=== PATIENT | male | born 1940 | race Caucasian/White ===

== ENCOUNTER 2021-04-29 20:11 | Emergency (ER) | payer MEDICARE, OTHER ==
[2021-04-29 20:31] VITALS: BP 101/53; PULSE 86; TEMP 98.6; BMI 25.8
[2021-04-29 21:50] LABS: BASO % 0.9 % (0-2.0); EOS % 3.4 % (0-4.5); HEMATOCRIT 37.2 % (35.4-49); HEMOGLOBIN 12.3 GM/dL (11.7-16.9); LYMPH % 46.8 % (8-40); MCH 28.4 pg (25.7-33.7); MCHC 33.1 g/dl (32.0-35.9); MEAN CELL VOLUME 85.9 fl (80-96); MEAN PLT VOLUME 9.5 fl (7.5-11.1); NEUT % 39.9 % (42.8-82.8); PLATELET COUNT 231 10^3/uL (134-434); RBC 4.33 M/mm3 (4.00-5.60); RDW 13.5 % (11.9-15.9); WHITE BLOOD COUNT 6.9 K/mm3 (4.0-10.0)
[2021-04-29 23:08] LABS: BILIRUBIN,TOTAL 0.3 mg/dL (0.2-1); CALCIUM 8.6 mg/dL (8.5-10.1); CREATININE 1.2 mg/dL (0.55-1.3)
== END 2021-04-30 00:06 | disposition home or self-care (01) ==
LOC: FER 20:11
DX: K52.9 Noninfective gastroenteritis and colitis, unspecified (principal); R07.89 Other chest pain
CPT/HCPCS: 36415; 80053; 82550; 84484; 85025; 99284-25

== ENCOUNTER 2021-08-01 19:37 | Inpatient (IN) | payer OTHER, MEDICARE ==
[2021-08-01 20:27] LABS: HEMATOCRIT 38.8 % (35.4-49); HEMOGLOBIN 13.5 G/dL (11.7-16.9); MCH 29.7 pg (25.7-33.7); MCHC 34.9 g/dl (32.0-35.9); MEAN CELL VOLUME 85.1 fl (80-96); MEAN PLT VOLUME 9.2 fl (7.5-11.1); PLATELET COUNT 227.5 10^3/uL (134-434); RBC 4.56 10^6/uL (4.00-5.60); RDW 14.5 % (11.9-15.9); WHITE BLOOD COUNT 9.4 10^3/uL (4.0-10.8)
[2021-08-01 20:34] LABS: ALBUMIN 3.4 g/dl (3.4-5.0); BILIRUBIN,TOTAL 0.9 mg/dl (0.2-1); CREATININE 1.2 mg/dl (0.55-1.3); TOT PROT 6.3 g/dl (6.4-8.2)
[2021-08-01 20:36] LABS: PLATELET ESTIMATE ADEQUATE
[2021-08-01] MEDS ORDERED: cefTRIAXone SODIUM 1 GM VIAL ONE (21:55)
[2021-08-01] MEDS ORDERED: CEFTRIAXONE 1,000 MG in DEXTROSE 5%-WATER - 50 ML IVPB ONE (21:57)
[2021-08-01] MEDS ORDERED: ACETAMINOPHEN 325 MG TABLET (FP) PO PRN (23:38)
[2021-08-02 05:33] VITALS: BMI 24.3
[2021-08-02 08:11] LABS: CALCIUM 8.5 mg/dl (8.5-10); CREATININE 1.3 mg/dl (0.55-1.3)
[2021-08-02] MEDS ORDERED: cefTRIAXone SODIUM 1 GM VIAL ONE (08:20)
[2021-08-02] MEDS ORDERED: DEXTROSE 5%-WATER - 50 ML IVPB ONE (08:20)
[2021-08-02 08:57] LABS: HEMATOCRIT 37.1 % (35.4-49); HEMOGLOBIN 12.6 G/dL (11.7-16.9); MEAN CELL VOLUME 85.2 fl (80-96); MEAN PLT VOLUME 9.5 fl (7.5-11.1); PLATELET COUNT 175.9 10^3/uL (134-434); RBC 4.35 10^6/uL (4.00-5.60); RDW 14.9 % (11.9-15.9); WHITE BLOOD COUNT 8.5 10^3/uL (4.0-10.8)
[2021-08-02] MEDS: MEMANTINE HCL 10 MG TABLET (FP) PO SCH (09:02)
[2021-08-02] MEDS: ASPIRIN 81 MG CHEWABLE TABLETS PO SCH (09:02)
[2021-08-02] MEDS: metoPROLOL SUCCINATE 25 MG TAB.SR.24H (FP) PO SCH (09:02)
[2021-08-02] MEDS: CEFTRIAXONE 1 GM in DEXTROSE 5%-WATER - 50 ML IVPB SCH (09:02)
[2021-08-02] MEDS: ENOXAPARIN NA (PORCINE) 40 MG/0.4 ML DISP.SYRIN SQ SCH (15:10)
[2021-08-02] MEDS ORDERED: ATORVASTATIN CA 20 MG TABLET (FP) PO SCH (22:00)
[2021-08-02] MEDS ORDERED: DONEPEZIL HCL 10 MG TABLET (FP) PO SCH (22:00)
[2021-08-03 08:23] LABS: BILIRUBIN,TOTAL 0.6 mg/dl (0.2-1); CALCIUM 8.6 mg/dl (8.5-10); CREATININE 1.2 mg/dl (0.55-1.3); TOT PROT 5.7 g/dl (6.4-8.2)
[2021-08-03 08:37] LABS: HEMATOCRIT 36.4 % (35.4-49); HEMOGLOBIN 12.6 G/dL (11.7-16.9); MCH 29.4 pg (25.7-33.7); MCHC 34.5 g/dl (32.0-35.9); MEAN CELL VOLUME 85.3 fl (80-96); MEAN PLT VOLUME 9.6 fl (7.5-11.1); RBC 4.27 10^6/uL (4.00-5.60); RDW 14.4 % (11.9-15.9); WHITE BLOOD COUNT 8.9 10^3/uL (4.0-10.8)
[2021-08-03] MEDS ORDERED: cefTRIAXone SODIUM 1 GM VIAL ONE (09:45)
[2021-08-03] MEDS ORDERED: DEXTROSE 5%-WATER - 50 ML IVPB ONE (09:45)
[2021-08-03] MEDS: ENOXAPARIN NA (PORCINE) 40 MG/0.4 ML DISP.SYRIN SQ SCH (09:49)
[2021-08-03] MEDS: CEFTRIAXONE 1 GM in DEXTROSE 5%-WATER - 50 ML IVPB SCH (09:50)
[2021-08-03] MEDS: MEMANTINE HCL 10 MG TABLET (FP) PO SCH (09:50)
[2021-08-03] MEDS: metoPROLOL SUCCINATE 25 MG TAB.SR.24H (FP) PO SCH (09:50)
[2021-08-03] MEDS: ASPIRIN 81 MG CHEWABLE TABLETS PO SCH (09:50)
[2021-08-03 13:59] VITALS: BP 117/53; PULSE 78; TEMP 98.1
== END 2021-08-03 16:31 | DRG 690 ==
LOC: FER 19:37 → FM/S 23:56 → OBSVTOIN 08-02 15:30 → FM/S 08-02 19:05
PROVIDERS: ADMIT Internal Medicine; ATTEND Nurse Practitioner Acute Care
DX: N39.0 Urinary tract infection, site not specified (principal); B96.89 Other specified bacterial agents as the cause of diseases classified elsewhere; F03.90 Unspecified dementia, unspecified severity, without behavioral disturbance, psychotic disturbance, mood disturbance, and anxiety; E78.00 Pure hypercholesterolemia, unspecified; I10 Essential (primary) hypertension; I25.10 Atherosclerotic heart disease of native coronary artery without angina pectoris; Z95.5 Presence of coronary angioplasty implant and graft
CPT/HCPCS: 0241U-QW; 36415; 70450-TC; 71045-TC-FY; 80048; 80053; 81003; 81015; 82550; 83605; 83735; 84484; 85025; 85027; 87040; 87086; 87186; 93005; 97116-GP; 97162-GP; 99285-25; G0378

== ENCOUNTER 2021-11-10 16:14 | Inpatient (IN) | payer OTHER, MEDICARE ==
[2021-11-10 18:14] LABS: BASO % 0.5 % (0-2.0); EOS % 1.2 % (0-4.5); HEMATOCRIT 39.6 % (35.4-49); HEMOGLOBIN 12.8 GM/dL (11.7-16.9); LYMPH % 24.1 % (8-40); MCH 28.2 pg (25.7-33.7); MCHC 32.4 g/dl (32.0-35.9); MEAN CELL VOLUME 86.9 fl (80-96); MEAN PLT VOLUME 9.4 fl (7.5-11.1); MONO % 9.4 % (3.8-10.2); NEUT % 64.8 % (42.8-82.8); PLATELET COUNT 357 10^3/uL (134-434); RBC 4.56 M/mm3 (4.00-5.60); RDW 15.1 % (11.9-15.9); WHITE BLOOD COUNT 9.6 K/mm3 (4.0-10.0)
[2021-11-10] MEDS ORDERED: HALOPERIDOL LACTATE 5 MG/ML IM ONE ×2 (18:19→20:06)
[2021-11-10 18:30] LABS: CHLORIDE 109 mmol/L (98-107); SODIUM 145 mmol/L (136-145)
[2021-11-10 18:32] LABS: CALCIUM 9.2 mg/dL (8.5-10.1)
[2021-11-10 18:33] LABS: ALBUMIN 2.5 g/dl (3.4-5.0); ANION GAP 9 MMOL/L (8-16); BLOOD UREA NITROGEN 30.4 mg/dL (7-18); CO2 27 mmol/L (21-32)
[2021-11-10 18:36] LABS: CREATININE 1.2 mg/dL (0.55-1.3); SGOT/AST 60 U/L (15-37); SGPT/ALT 42 U/L (13-61)
[2021-11-10 18:37] LABS: BILIRUBIN,TOTAL 0.7 mg/dL (0.2-1)
[2021-11-10 18:38] LABS: TOT PROT 6.7 g/dl (6.4-8.2)
[2021-11-10 18:39] LABS: ALK PHOS 89 U/L (45-117)
[2021-11-10] MEDS ORDERED: HALOPERIDOL LACTATE 5 MG/ML ONE ×2 (18:44→20:07)
[2021-11-10 18:52] LABS: GLUCOSE,RANDOM 122 mg/dL (74-106)
[2021-11-10] MEDS ORDERED: MIDAZOLAM HCL 5 MG/1 ML Single Dose Vial IVPUSH ONE (20:56)
[2021-11-10] MEDS ORDERED: MIDAZOLAM HCL 5 MG/1 ML Single Dose Vial ONE (20:58)
[2021-11-10] MEDS ORDERED: ACETAMINOPHEN 1000 MG/100 ML BAG IVPB ONE (21:51)
[2021-11-10] MEDS ORDERED: ACETAMINOPHEN INJECTION 100 ML IVPB ONE (22:17)
[2021-11-11] MEDS: morphine CARPU-JECT 2 MG/1 ML DISP.SYRIN IVPUSH ONE ×2 (00:32→00:35)
[2021-11-11] MEDS ORDERED: morphine CARPU-JECT 2 MG/1 ML DISP.SYRIN IVPUSH ONE (00:36)
[2021-11-11 02:06] LABS: INR 1.16 (0.83-1.09); PROTHROMBIN TIME (PATIENT) 13.4 SEC (9.7-13.0)
[2021-11-11 02:08] LABS: ACTIVATED PTT 26.2 SECONDS (25.2-36.5)
[2021-11-11 03:17] VITALS: BMI 22.8
[2021-11-11] MEDS: ACETAMINOPHEN 1000 MG/100 ML BAG IVPB PRN (05:40)
[2021-11-11 07:44] LABS: BASO % 0.6 % (0-2.0); EOS % 2.1 % (0-4.5); HEMATOCRIT 36.3 % (35.4-49); HEMOGLOBIN 11.6 GM/dL (11.7-16.9); LYMPH % 31.4 % (8-40); MCH 27.9 pg (25.7-33.7); MEAN CELL VOLUME 87.2 fl (80-96); MEAN PLT VOLUME 9.7 fl (7.5-11.1); MONO % 12.4 % (3.8-10.2); NEUT % 53.5 % (42.8-82.8); PLATELET COUNT 271 10^3/uL (134-434); RBC 4.17 M/mm3 (4.00-5.60); RDW 14.9 % (11.9-15.9)
[2021-11-11 08:30] LABS: BILIRUBIN,TOTAL 0.6 mg/dL (0.2-1); TOT PROT 5.9 g/dl (6.4-8.2)
[2021-11-11 08:31] LABS: ALBUMIN 2.6 g/dl (3.4-5.0)
[2021-11-11 08:32] LABS: BLOOD UREA NITROGEN 25.6 mg/dL (7-18); CREATININE 1.1 mg/dL (0.55-1.3); MAGNESIUM 2.6 mg/dL (1.8-2.4)
[2021-11-11 08:35] LABS: CALCIUM 8.8 mg/dL (8.5-10.1)
[2021-11-12] MEDS: DONEPEZIL HCL 10 MG TABLET (FP) PO SCH (17:34)
[2021-11-12] MEDS: ACETAMINOPHEN 1000 MG/100 ML BAG IVPB PRN (17:56)
[2021-11-12] MEDS: ATORVASTATIN CA 20 MG TABLET (FP) PO SCH (21:41)
[2021-11-13] MEDS: ASPIRIN 81 MG CHEWABLE TABLETS PO SCH (10:17)
[2021-11-13] MEDS: DONEPEZIL HCL 10 MG TABLET (FP) PO SCH (10:17)
[2021-11-13] MEDS: metoPROLOL SUCCINATE 25 MG TAB.SR.24H (FP) PO SCH (10:17)
[2021-11-13] MEDS: MEMANTINE HCL 10 MG TABLET (FP) PO SCH (10:17)
[2021-11-13] MEDS: ACETAMINOPHEN 1000 MG/100 ML BAG IVPB PRN (21:43)
[2021-11-13] MEDS: ATORVASTATIN CA 20 MG TABLET (FP) PO SCH (21:43)
[2021-11-14] MEDS: DONEPEZIL HCL 10 MG TABLET (FP) PO SCH (09:58)
[2021-11-14] MEDS: ASPIRIN 81 MG CHEWABLE TABLETS PO SCH (09:58)
[2021-11-14] MEDS: metoPROLOL SUCCINATE 25 MG TAB.SR.24H (FP) PO SCH (09:59)
[2021-11-14] MEDS: MEMANTINE HCL 10 MG TABLET (FP) PO SCH (09:59)
[2021-11-14] MEDS ORDERED: BUPIVACAINE HCL/PF 0.5% (5MG/ML) 10 ML VIAL ONE (12:24)
[2021-11-14] MEDS ORDERED: DEXMEDETOMIDINE HCL 200 MCG/2 ML IVPB ONE (12:25)
[2021-11-14] MEDS ORDERED: ACETAMINOPHEN INJECTION 100 ML IVPB ONE (12:25)
[2021-11-14] MEDS ORDERED: ceFAZolin SODIUM 1 GM VIAL ONE (13:04)
[2021-11-14] MEDS ORDERED: ceFAZolin SODIUM 1 GM VIAL IVPB ONE ×2 (14:15→14:29)
[2021-11-14] MEDS ORDERED: LACTATED RINGERS SOLUTION 1,000 ML IV SCH ×2 (15:15→15:48)
[2021-11-14] MEDS ORDERED: SENNOSIDES/DOCUSATE COMBO (SENNA PLUS) TABLET (UD) PO SCH (22:00)
[2021-11-14] MEDS: SENNOSIDES/DOCUSATE COMBO (SENNA PLUS) TABLET (UD) PO SCH ×2 (22:11→22:25)
[2021-11-14] MEDS: ATORVASTATIN CA 20 MG TABLET (FP) PO SCH ×2 (22:11→22:25)
[2021-11-14] MEDS: CEFAZOLIN SODIUM 2 GM in DEXTROSE 5%-WATER 100 ML IVPB SCH (22:12)
[2021-11-14] MEDS ORDERED: CEFAZOLIN SODIUM 2 GM in DEXTROSE 5%-WATER 100 ML IVPB SCH (23:00)
[2021-11-15] MEDS: CEFAZOLIN SODIUM 2 GM in DEXTROSE 5%-WATER 100 ML IVPB SCH (06:09)
[2021-11-15] MEDS: LEVOTHYROXINE NA 25 MCG TABLET (FP) PO SCH (06:10)
[2021-11-15] MEDS: ACETAMINOPHEN 1000 MG/100 ML BAG IVPB PRN ×2 (06:47→13:01)
[2021-11-15] MEDS ORDERED: LEVOTHYROXINE NA 25 MCG TABLET (FP) PO SCH (07:00)
[2021-11-15 07:30] LABS: BASO % 0.4 % (0-2.0); EOS % 0.3 % (0-4.5); HEMOGLOBIN 12.5 GM/dL (11.7-16.9); LYMPH % 13.6 % (8-40); MCH 28.6 pg (25.7-33.7); MEAN CELL VOLUME 86.6 fl (80-96); MEAN PLT VOLUME 9.7 fl (7.5-11.1); MONO % 8.3 % (3.8-10.2); NEUT % 77.4 % (42.8-82.8); PLATELET COUNT 403 10^3/uL (134-434); RBC 4.39 M/mm3 (4.00-5.60); RDW 14.8 % (11.9-15.9); WHITE BLOOD COUNT 10.1 K/mm3 (4.0-10.0)
[2021-11-15 07:53] LABS: ALBUMIN 2.7 g/dl (3.4-5.0); BLOOD UREA NITROGEN 16.1 mg/dL (7-18)
[2021-11-15 07:56] LABS: CREATININE 0.9 mg/dL (0.55-1.3)
[2021-11-15 07:59] LABS: BILIRUBIN,TOTAL 0.8 mg/dL (0.2-1); TOT PROT 6.3 g/dl (6.4-8.2)
[2021-11-15] MEDS: SENNOSIDES/DOCUSATE COMBO (SENNA PLUS) TABLET (UD) PO SCH ×2 (09:39→22:20)
[2021-11-15] MEDS: PANTOPRAZOLE 40 MG TABLET PO SCH (09:39)
[2021-11-15] MEDS: ENOXAPARIN NA (PORCINE) 40 MG/0.4 ML DISP.SYRIN SQ SCH (09:39)
[2021-11-15] MEDS: MULTIVITAMINS (DAILY MVI) TABLET (FP) PO SCH (09:39)
[2021-11-15] MEDS: MEMANTINE HCL 10 MG TABLET (FP) PO SCH (09:40)
[2021-11-15] MEDS: DONEPEZIL HCL 10 MG TABLET (FP) PO SCH (09:40)
[2021-11-15] MEDS: metoPROLOL SUCCINATE 25 MG TAB.SR.24H (FP) PO SCH (09:40)
[2021-11-15] MEDS ORDERED: MULTIVITAMINS (DAILY MVI) TABLET (FP) PO SCH (10:00)
[2021-11-15] MEDS ORDERED: ENOXAPARIN NA (PORCINE) 40 MG/0.4 ML DISP.SYRIN SQ SCH (10:00)
[2021-11-15] MEDS ORDERED: PANTOPRAZOLE 40 MG TABLET PO SCH (10:00)
[2021-11-15] MEDS ORDERED: traMADol HCL 50 MG TABLET PO PRN (17:08)
[2021-11-15] MEDS: ATORVASTATIN CA 20 MG TABLET (FP) PO SCH (22:20)
[2021-11-16] MEDS: LEVOTHYROXINE NA 25 MCG TABLET (FP) PO SCH (06:32)
[2021-11-16 08:04] LABS: HEMATOCRIT 34.1 % (35.4-49); MCHC 32.2 g/dl (32.0-35.9); MEAN CELL VOLUME 86.8 fl (80-96); MEAN PLT VOLUME 9.8 fl (7.5-11.1); PLATELET COUNT 304 10^3/uL (134-434); RBC 3.93 M/mm3 (4.00-5.60); RDW 14.9 % (11.9-15.9); WHITE BLOOD COUNT 9.5 K/mm3 (4.0-10.0)
[2021-11-16 08:10] VITALS: RESP 18
[2021-11-16] MEDS: MEMANTINE HCL 10 MG TABLET (FP) PO SCH (09:45)
[2021-11-16] MEDS: SENNOSIDES/DOCUSATE COMBO (SENNA PLUS) TABLET (UD) PO SCH ×2 (09:46→21:49)
[2021-11-16] MEDS: DONEPEZIL HCL 10 MG TABLET (FP) PO SCH (09:46)
[2021-11-16] MEDS: ENOXAPARIN NA (PORCINE) 40 MG/0.4 ML DISP.SYRIN SQ SCH (09:46)
[2021-11-16] MEDS: PANTOPRAZOLE 40 MG TABLET PO SCH (09:46)
[2021-11-16] MEDS: MULTIVITAMINS (DAILY MVI) TABLET (FP) PO SCH (09:46)
[2021-11-16] MEDS: metoPROLOL SUCCINATE 25 MG TAB.SR.24H (FP) PO SCH (09:49)
[2021-11-16] MEDS: ATORVASTATIN CA 20 MG TABLET (FP) PO SCH (21:49)
[2021-11-17] MEDS: traMADol HCL 50 MG TABLET PO PRN ×2 (00:05→10:40)
[2021-11-17] MEDS: LEVOTHYROXINE NA 25 MCG TABLET (FP) PO SCH (06:29)
[2021-11-17] MEDS ORDERED: INSULIN (NOVOLOG) ASPART 100 UNITS/ML 10ML VIAL ONE (07:34)
[2021-11-17] MEDS: SENNOSIDES/DOCUSATE COMBO (SENNA PLUS) TABLET (UD) PO SCH ×2 (10:29→21:57)
[2021-11-17] MEDS: ENOXAPARIN NA (PORCINE) 40 MG/0.4 ML DISP.SYRIN SQ SCH (10:30)
[2021-11-17] MEDS: MEMANTINE HCL 10 MG TABLET (FP) PO SCH (10:30)
[2021-11-17] MEDS: MULTIVITAMINS (DAILY MVI) TABLET (FP) PO SCH (10:30)
[2021-11-17] MEDS: DONEPEZIL HCL 10 MG TABLET (FP) PO SCH (10:30)
[2021-11-17] MEDS: PANTOPRAZOLE 40 MG TABLET PO SCH (10:30)
[2021-11-17] MEDS: ATORVASTATIN CA 20 MG TABLET (FP) PO SCH (21:57)
[2021-11-18] MEDS: traMADol HCL 50 MG TABLET PO PRN ×2 (02:58→10:02)
[2021-11-18] MEDS: LEVOTHYROXINE NA 25 MCG TABLET (FP) PO SCH (06:12)
[2021-11-18] MEDS: ENOXAPARIN NA (PORCINE) 40 MG/0.4 ML DISP.SYRIN SQ SCH (10:01)
[2021-11-18] MEDS: DONEPEZIL HCL 10 MG TABLET (FP) PO SCH (10:02)
[2021-11-18] MEDS: MEMANTINE HCL 10 MG TABLET (FP) PO SCH (10:02)
[2021-11-18] MEDS: SENNOSIDES/DOCUSATE COMBO (SENNA PLUS) TABLET (UD) PO SCH (10:02)
[2021-11-18] MEDS: MULTIVITAMINS (DAILY MVI) TABLET (FP) PO SCH (10:02)
[2021-11-18] MEDS: PANTOPRAZOLE 40 MG TABLET PO SCH (10:02)
[2021-11-18 14:28] VITALS: BP 120/55; PULSE 96; TEMP 96
== END 2021-11-18 16:30 | DRG 522 ==
LOC: JER 16:14 → JERBED 23:28 → J4W 11-11 03:32 → J6S 11-16 14:32
PROVIDERS: ADMIT Internal Medicine; ATTEND Family Medicine
PROC: 0SRS0JZ Replacement of Left Hip Joint, Femoral Surface with Synthetic Substitute, Open Approach (ICD-10-PCS; principal; 2021-11-14 15:30)
DX: S72.002A Fracture of unspecified part of neck of left femur, initial encounter for closed fracture (principal); F03.918 Unspecified dementia, unspecified severity, with other behavioral disturbance; I10 Essential (primary) hypertension; E78.5 Hyperlipidemia, unspecified; I25.10 Atherosclerotic heart disease of native coronary artery without angina pectoris; Z95.5 Presence of coronary angioplasty implant and graft; W19.XXXA Unspecified fall, initial encounter; Y93.9 Activity, unspecified; Y92.89 Other specified places as the place of occurrence of the external cause; Y99.9 Unspecified external cause status
CPT/HCPCS: 36415; 70450-TC; 71045-TC-FY; 72170-TC-FY; 72192-TC; 73502-TC-LT-FY; 73502-TC-RT-FY; 73700-TC-RT; 80048; 80053; 80061; 83735; 84443; 84484; 85025; 85027; 85610; 85730; 86850; 86900; 86901; 88305-TC; 88311-TC; 93005; 93010; 93306-TC; 94760; 97116-GP; 97162-GP; 99285-25; C9803-CS; U0003; U0005

== ENCOUNTER 2022-01-17 17:57 | Inpatient (IN) | payer OTHER, MEDICARE ==
[2022-01-17 21:13] LABS: VENOUS BASE EXCESS 3.9 mmol/L (-2-2); VENOUS O2 SATURATION 44.9 % (70-80); VENOUS PCO2 45.4 mmHg (38-52); VENOUS PH 7.423 (7.310-7.410)
[2022-01-17 21:43] LABS: BASO % 0.9 % (0-2.0); EOS % 0.6 % (0-4.5); HEMATOCRIT 36.4 % (35.4-49); HEMOGLOBIN 11.6 GM/dL (11.7-16.9); LYMPH % 42.5 % (8-40); MCH 26.2 pg (25.7-33.7); MCHC 31.8 g/dl (32.0-35.9); MEAN CELL VOLUME 82.2 fl (80-96); MEAN PLT VOLUME 8.2 fl (7.5-11.1); MONO % 11.7 % (3.8-10.2); NEUT % 44.3 % (42.8-82.8); PLATELET COUNT 399 10^3/uL (134-434); RBC 4.42 M/mm3 (4.00-5.60); RDW 15.6 % (11.9-15.9); WHITE BLOOD COUNT 8.4 K/mm3 (4.0-10.0)
[2022-01-17 21:45] LABS: EPI CELLS 22 /uL (0-25.1); HYALINE CASTS 8 /uL (0-3.1); PH,URINE 5.5 (5.0-8.0); URINE APPEARANCE CLOUDY; URINE BACTERIA 24 /uL (0-1359); URINE BILIRUBIN 1+ (NEGATIVE); URINE COLOR DK YELLOW; URINE GLUCOSE (UA) NEGATIVE (NEGATIVE); URINE KETONE 1+ (NEGATIVE); URINE LEUK ESTERASE TRACE (NEGATIVE); URINE NITRITE NEGATIVE (NEGATIVE); URINE PROTEIN 1+ (NEGATIVE); URINE RBC 165 /uL (0-23.9); URINE WBC 29 /uL (0-25.8)
[2022-01-17 21:45] LABS: BLOOD UREA NITROGEN 13.9 mg/dL (7-18); CALCIUM 8.8 mg/dL (8.5-10.1); MAGNESIUM 2.1 mg/dL (1.8-2.4)
[2022-01-17 21:46] LABS: ALBUMIN 2.4 g/dl (3.4-5.0)
[2022-01-17 21:48] LABS: PHOSPHOROUS 3.2 mg/dL (2.5-4.9)
[2022-01-17 21:49] LABS: CREATININE 0.9 mg/dL (0.55-1.3)
[2022-01-17 21:50] LABS: BILIRUBIN,TOTAL 0.5 mg/dL (0.2-1); TOT PROT 6.6 g/dl (6.4-8.2)
[2022-01-17] MEDS ORDERED: PIPERACILLIN/TAZOB 4.5 GM 4.5 GM in DEXTROSE 5%-WATER 100 ML IVPB ONE (22:10)
[2022-01-17] MEDS ORDERED: PIPERACILLIN/TAZOB 4.5 GM 4.5 GM/100 ML BAG IVPB ONE (22:20)
[2022-01-18 09:43] LABS: BASO % 1.1 % (0-2.0); EOS % 1.1 % (0-4.5); HEMATOCRIT 31.3 % (35.4-49); HEMOGLOBIN 9.8 GM/dL (11.7-16.9); LYMPH % 35.4 % (8-40); MCH 25.8 pg (25.7-33.7); MCHC 31.5 g/dl (32.0-35.9); MEAN CELL VOLUME 81.8 fl (80-96); MEAN PLT VOLUME 8.3 fl (7.5-11.1); MONO % 15.7 % (3.8-10.2); NEUT % 46.7 % (42.8-82.8); PLATELET COUNT 345 10^3/uL (134-434); RBC 3.82 M/mm3 (4.00-5.60); RDW 15.5 % (11.9-15.9); WHITE BLOOD COUNT 6.4 K/mm3 (4.0-10.0)
[2022-01-18 10:14] LABS: ALBUMIN 2.1 g/dl (3.4-5.0); CALCIUM 8.5 mg/dL (8.5-10.1)
[2022-01-18 10:17] LABS: BLOOD UREA NITROGEN 14.8 mg/dL (7-18); CREATININE 0.8 mg/dL (0.55-1.3)
[2022-01-18 10:19] LABS: BILIRUBIN,TOTAL 0.5 mg/dL (0.2-1); TOT PROT 5.7 g/dl (6.4-8.2)
[2022-01-18] MEDS ORDERED: PIPERACILLIN/TAZOB 4.5 GM 4.5 GM in DEXTROSE 5%-WATER 100 ML IVPB SCH (11:00)
[2022-01-18] MEDS: ASPIRIN COATED 81 MG TABLET.EC PO SCH (12:16)
[2022-01-18] MEDS: MEMANTINE HCL 10 MG TABLET (FP) PO SCH ×2 (12:16→22:00)
[2022-01-18] MEDS: PANTOPRAZOLE 40 MG TABLET PO SCH (12:16)
[2022-01-18] MEDS: traMADol HCL 50 MG TABLET PO PRN ×2 (12:17→22:46)
[2022-01-18] MEDS: DONEPEZIL HCL 10 MG TABLET (FP) PO SCH (17:37)
[2022-01-18 20:25] VITALS: BMI 22.7
[2022-01-18] MEDS: ATORVASTATIN CA 40 MG TABLET (FP) PO SCH (22:45)
[2022-01-19] MEDS: LEVOTHYROXINE NA 25 MCG TABLET (FP) PO SCH (06:31)
[2022-01-19] MEDS ORDERED: PIPERACILLIN/TAZOB 4.5 GM 4.5 GM in DEXTROSE 5%-WATER 100 ML IVPB SCH (09:00)
[2022-01-19] MEDS: MEMANTINE HCL 10 MG TABLET (FP) PO SCH ×2 (10:36→23:22)
[2022-01-19] MEDS: ASPIRIN COATED 81 MG TABLET.EC PO SCH (10:36)
[2022-01-19] MEDS: ENOXAPARIN NA (PORCINE) 40 MG/0.4 ML DISP.SYRIN SQ SCH (10:36)
[2022-01-19] MEDS: PANTOPRAZOLE 40 MG TABLET PO SCH (10:36)
[2022-01-19] MEDS: DONEPEZIL HCL 10 MG TABLET (FP) PO SCH (17:28)
[2022-01-19] MEDS: ATORVASTATIN CA 40 MG TABLET (FP) PO SCH (23:22)
[2022-01-20] MEDS: LEVOTHYROXINE NA 25 MCG TABLET (FP) PO SCH (06:34)
[2022-01-20 08:25] LABS: HEMATOCRIT 29.2 % (35.4-49); HEMOGLOBIN 9.5 GM/dL (11.7-16.9); MCH 26.6 pg (25.7-33.7); MCHC 32.5 g/dl (32.0-35.9); MEAN CELL VOLUME 81.8 fl (80-96); MEAN PLT VOLUME 7.9 fl (7.5-11.1); PLATELET COUNT 310 10^3/uL (134-434); RBC 3.57 M/mm3 (4.00-5.60); RDW 15.7 % (11.9-15.9); WHITE BLOOD COUNT 5.8 K/mm3 (4.0-10.0)
[2022-01-20 08:51] LABS: BLOOD UREA NITROGEN 15.8 mg/dL (7-18); CALCIUM 8.4 mg/dL (8.5-10.1)
[2022-01-20 08:55] LABS: CREATININE 0.7 mg/dL (0.55-1.3)
[2022-01-20 08:57] LABS: BILIRUBIN,TOTAL 1.1 mg/dL (0.2-1); TOT PROT 5.4 g/dl (6.4-8.2)
[2022-01-20] MEDS: ENOXAPARIN NA (PORCINE) 40 MG/0.4 ML DISP.SYRIN SQ SCH (10:41)
[2022-01-20] MEDS: ASPIRIN COATED 81 MG TABLET.EC PO SCH (10:41)
[2022-01-20] MEDS: PANTOPRAZOLE 40 MG TABLET PO SCH (10:41)
[2022-01-20] MEDS: MEMANTINE HCL 10 MG TABLET (FP) PO SCH ×2 (11:06→22:15)
[2022-01-20] MEDS: traMADol HCL 50 MG TABLET PO PRN (15:31)
[2022-01-20] MEDS: DONEPEZIL HCL 10 MG TABLET (FP) PO SCH (18:05)
[2022-01-20] MEDS: ATORVASTATIN CA 40 MG TABLET (FP) PO SCH (21:50)
[2022-01-20] MEDS: ACETAMINOPHEN 325 MG TABLET (FP) PO PRN (21:51)
[2022-01-21] MEDS: LEVOTHYROXINE NA 25 MCG TABLET (FP) PO SCH (06:12)
[2022-01-21] MEDS: ASPIRIN COATED 81 MG TABLET.EC PO SCH (09:49)
[2022-01-21] MEDS: PANTOPRAZOLE 40 MG TABLET PO SCH (09:49)
[2022-01-21] MEDS: MEMANTINE HCL 10 MG TABLET (FP) PO SCH ×3 (09:55→23:12)
[2022-01-21] MEDS: ENOXAPARIN NA (PORCINE) 40 MG/0.4 ML DISP.SYRIN SQ SCH (09:55)
[2022-01-21] MEDS: PANTOPRAZOLE SOD 40 MG SUSPENSION PACKET PO SCH (17:15)
[2022-01-21] MEDS: DONEPEZIL HCL 10 MG TABLET (FP) PO SCH (17:16)
[2022-01-21] MEDS: ATORVASTATIN CA 40 MG TABLET (FP) PO SCH ×2 (23:07→23:13)
[2022-01-22] MEDS: LEVOTHYROXINE NA 25 MCG TABLET (FP) PO SCH (06:56)
[2022-01-22] MEDS: ACETAMINOPHEN 325 MG TABLET (FP) PO PRN (09:06)
[2022-01-22] MEDS: ASPIRIN COATED 81 MG TABLET.EC PO SCH (10:16)
[2022-01-22] MEDS: MEMANTINE HCL 10 MG TABLET (FP) PO SCH ×2 (10:48→21:55)
[2022-01-22] MEDS: PANTOPRAZOLE SOD 40 MG SUSPENSION PACKET PO SCH (10:48)
[2022-01-22] MEDS: ENOXAPARIN NA (PORCINE) 40 MG/0.4 ML DISP.SYRIN SQ SCH (10:49)
[2022-01-22] MEDS: DONEPEZIL HCL 10 MG TABLET (FP) PO SCH (17:53)
[2022-01-22] MEDS: ATORVASTATIN CA 40 MG TABLET (FP) PO SCH (21:55)
[2022-01-23] MEDS: LEVOTHYROXINE NA 25 MCG TABLET (FP) PO SCH (06:19)
[2022-01-23] MEDS: ACETAMINOPHEN 325 MG TABLET (FP) PO PRN (10:33)
[2022-01-23] MEDS: PANTOPRAZOLE SOD 40 MG SUSPENSION PACKET PO SCH (10:33)
[2022-01-23] MEDS: ENOXAPARIN NA (PORCINE) 40 MG/0.4 ML DISP.SYRIN SQ SCH (10:33)
[2022-01-23] MEDS: MEMANTINE HCL 10 MG TABLET (FP) PO SCH ×2 (10:33→22:58)
[2022-01-23] MEDS: ASPIRIN 81 MG CHEWABLE TABLETS PO SCH (10:33)
[2022-01-23] MEDS ORDERED: KETOROLAC TROMETHAMINE 15 MG/ML VIAL IVPUSH ONE (17:05)
[2022-01-23] MEDS: DONEPEZIL HCL 10 MG TABLET (FP) PO SCH (18:45)
[2022-01-23] MEDS: ATORVASTATIN CA 40 MG TABLET (FP) PO SCH (22:58)
[2022-01-24] MEDS: KETOROLAC TROMETHAMINE 15 MG/ML VIAL IVPUSH PRN ×2 (02:37→21:53)
[2022-01-24] MEDS ORDERED: KETOROLAC TROMETHAMINE 15 MG/ML VIAL IM ONE (03:25)
[2022-01-24] MEDS: LEVOTHYROXINE NA 25 MCG TABLET (FP) PO SCH (06:42)
[2022-01-24] MEDS: ASPIRIN 81 MG CHEWABLE TABLETS PO SCH (11:26)
[2022-01-24] MEDS: ENOXAPARIN NA (PORCINE) 40 MG/0.4 ML DISP.SYRIN SQ SCH (11:27)
[2022-01-24] MEDS: MEMANTINE HCL 10 MG TABLET (FP) PO SCH ×2 (11:27→21:53)
[2022-01-24] MEDS: PANTOPRAZOLE SOD 40 MG SUSPENSION PACKET PO SCH (11:27)
[2022-01-24] MEDS: ACETAMINOPHEN 325 MG TABLET (FP) PO PRN (11:28)
[2022-01-24] MEDS ORDERED: REMDESIVIR 200 MG in SODIUM CHLORIDE 250 ML IVPB ONE (12:00)
[2022-01-24 13:04] LABS: BASO % 0.9 % (0-2.0); EOS % 0.6 % (0-4.5); HEMATOCRIT 30.7 % (35.4-49); HEMOGLOBIN 9.9 GM/dL (11.7-16.9); LYMPH % 24.2 % (8-40); MCH 26.4 pg (25.7-33.7); MCHC 32.1 g/dl (32.0-35.9); MEAN CELL VOLUME 82.1 fl (80-96); MEAN PLT VOLUME 8.6 fl (7.5-11.1); NEUT % 67.3 % (42.8-82.8); PLATELET COUNT 295 10^3/uL (134-434); RBC 3.74 M/mm3 (4.00-5.60); RDW 16.5 % (11.9-15.9); WHITE BLOOD COUNT 7.2 K/mm3 (4.0-10.0)
[2022-01-24 13:35] LABS: CALCIUM 8.6 mg/dL (8.5-10.1)
[2022-01-24 13:36] LABS: ALBUMIN 1.9 g/dl (3.4-5.0); BLOOD UREA NITROGEN 29.9 mg/dL (7-18); MAGNESIUM 2.2 mg/dL (1.8-2.4)
[2022-01-24 13:39] LABS: CREATININE 1.1 mg/dL (0.55-1.3); PHOSPHOROUS 2.2 mg/dL (2.5-4.9)
[2022-01-24 13:40] LABS: BILIRUBIN,TOTAL 0.5 mg/dL (0.2-1); TOT PROT 5.5 g/dl (6.4-8.2)
[2022-01-24] MEDS: DONEPEZIL HCL 10 MG TABLET (FP) PO SCH (17:37)
[2022-01-24] MEDS: ATORVASTATIN CA 40 MG TABLET (FP) PO SCH (21:52)
[2022-01-25] MEDS ORDERED: HALOPERIDOL LACTATE 5 MG/ML IM ONE (00:30)
[2022-01-25] MEDS: LEVOTHYROXINE NA 25 MCG TABLET (FP) PO SCH (06:24)
[2022-01-25 09:09] LABS: BASO % 1.1 % (0-2.0); EOS % 1.9 % (0-4.5); HEMATOCRIT 31.3 % (35.4-49); HEMOGLOBIN 9.9 GM/dL (11.7-16.9); LYMPH % 42.1 % (8-40); MCH 26.1 pg (25.7-33.7); MCHC 31.5 g/dl (32.0-35.9); MEAN CELL VOLUME 82.8 fl (80-96); MONO % 10.1 % (3.8-10.2); NEUT % 44.8 % (42.8-82.8); PLATELET COUNT 284 10^3/uL (134-434); RBC 3.78 M/mm3 (4.00-5.60); RDW 15.9 % (11.9-15.9); WHITE BLOOD COUNT 6.5 K/mm3 (4.0-10.0)
[2022-01-25 09:14] LABS: CALCIUM 8.6 mg/dL (8.5-10.1)
[2022-01-25 09:15] LABS: ALBUMIN 1.9 g/dl (3.4-5.0); BLOOD UREA NITROGEN 39.1 mg/dL (7-18); MAGNESIUM 2.3 mg/dL (1.8-2.4)
[2022-01-25 09:20] LABS: BILIRUBIN,TOTAL 0.3 mg/dL (0.2-1); TOT PROT 5.5 g/dl (6.4-8.2)
[2022-01-25] MEDS: ENOXAPARIN NA (PORCINE) 40 MG/0.4 ML DISP.SYRIN SQ SCH (10:45)
[2022-01-25] MEDS: ASPIRIN 81 MG CHEWABLE TABLETS PO SCH (10:46)
[2022-01-25] MEDS: PANTOPRAZOLE SOD 40 MG SUSPENSION PACKET PO SCH (10:46)
[2022-01-25] MEDS: MEMANTINE HCL 10 MG TABLET (FP) PO SCH ×2 (10:46→23:00)
[2022-01-25] MEDS: KETOROLAC TROMETHAMINE 15 MG/ML VIAL IVPUSH PRN (10:59)
[2022-01-25] MEDS: REMDESIVIR 100 MG in SODIUM CHLORIDE 250 ML IVPB SCH (12:50)
[2022-01-25] MEDS: ACETAMINOPHEN 325 MG TABLET (FP) PO PRN (13:45)
[2022-01-25] MEDS: DONEPEZIL HCL 10 MG TABLET (FP) PO SCH (17:57)
[2022-01-25] MEDS: COLLAGENASE CLOSTRIDIUM HIST. 30 GRAMS TUBE TP SCH (18:22)
[2022-01-25] MEDS: ATORVASTATIN CA 40 MG TABLET (FP) PO SCH (23:00)
[2022-01-26] MEDS: LEVOTHYROXINE NA 25 MCG TABLET (FP) PO SCH (06:44)
[2022-01-26] MEDS: REMDESIVIR 100 MG in SODIUM CHLORIDE 250 ML IVPB SCH (11:14)
[2022-01-26] MEDS: ENOXAPARIN NA (PORCINE) 40 MG/0.4 ML DISP.SYRIN SQ SCH (11:14)
[2022-01-26] MEDS: COLLAGENASE CLOSTRIDIUM HIST. 30 GRAMS TUBE TP SCH (11:15)
[2022-01-26] MEDS: PANTOPRAZOLE SOD 40 MG SUSPENSION PACKET PO SCH (11:15)
[2022-01-26] MEDS: ASPIRIN 81 MG CHEWABLE TABLETS PO SCH (11:15)
[2022-01-26] MEDS: MEMANTINE HCL 10 MG TABLET (FP) PO SCH (11:16)
[2022-01-26] MEDS: DONEPEZIL HCL 10 MG TABLET (FP) PO SCH (18:18)
[2022-01-27 03:32] VITALS: BP 134/82; PULSE 112; RESP 17; TEMP 98.9
== END 2022-01-26 20:00 | DRG 884 ==
LOC: JER 17:57 → JERBED 22:40 → J7W 01-18 07:32 → J6S 01-20 02:33 → J7W 01-20 02:34
PROVIDERS: ADMIT Family Medicine; ATTEND Nurse Practitioner Family
PROC: XW033E5 Introduction of Remdesivir Anti-infective into Peripheral Vein, Percutaneous Approach, New Technology Group 5 (ICD-10-PCS; principal; 2022-01-25)
DX: F03.90 Unspecified dementia, unspecified severity, without behavioral disturbance, psychotic disturbance, mood disturbance, and anxiety (principal); R53.2 Functional quadriplegia; U07.1 COVID-19; E87.0 Hyperosmolality and hypernatremia; I25.10 Atherosclerotic heart disease of native coronary artery without angina pectoris; I10 Essential (primary) hypertension; E78.5 Hyperlipidemia, unspecified; R53.1 Weakness; B96.20 Unspecified Escherichia coli [E. coli] as the cause of diseases classified elsewhere; R26.81 Unsteadiness on feet; L89.221 Pressure ulcer of left hip, stage 1; L89.609 Pressure ulcer of unspecified heel, unspecified stage
CPT/HCPCS: 0241U-QW; 36415; 70450-TC; 71045-TC-FY; 73502-TC-LT-FY; 73502-TC-RT-FY; 80053; 81003; 82803; 83605; 83735; 84100; 84443; 84484; 85025; 85027; 86140; 87040; 87086; 87186; 93005; 93010; 97161-GP; 99285-25; C9399; C9803-CS; U0003; U0005

== ENCOUNTER 2022-03-10 10:47 | Inpatient (IN) | payer OTHER, MEDICARE ==
[2022-03-10] MEDS ORDERED: SODIUM CHLORIDE 1,000 ML IV STA (11:36)
[2022-03-10 11:59] LABS: VENOUS BASE EXCESS 0.4 mmol/L (-2-2); VENOUS O2 SATURATION 19.8 % (70-80); VENOUS PCO2 53.6 mmHg (38-52); VENOUS PH 7.331 (7.310-7.410)
[2022-03-10 12:02] LABS: BASO % 0.7 % (0-2.0); EOS % 0.5 % (0-4.5); EPI CELLS >36 /uL (0-25.1); HEMATOCRIT 30.1 % (35.4-49); HEMOGLOBIN 9.4 GM/dL (11.7-16.9); HYALINE CASTS 66 /uL (0-3.1); LYMPH % 28.6 % (8-40); MCH 25.8 pg (25.7-33.7); MCHC 31.3 g/dl (32.0-35.9); MEAN CELL VOLUME 82.4 fl (80-96); MEAN PLT VOLUME 9.2 fl (7.5-11.1); MONO % 5.3 % (3.8-10.2); NEUT % 64.9 % (42.8-82.8); PLATELET COUNT 586 10^3/uL (134-434); RBC 3.65 M/mm3 (4.00-5.60); RDW 17.6 % (11.9-15.9); URINE APPEARANCE TURBID; URINE BILIRUBIN NEGATIVE (NEGATIVE); URINE COLOR DK YELLOW; URINE GLUCOSE (UA) NEGATIVE (NEGATIVE); URINE KETONE NEGATIVE (NEGATIVE); URINE LEUK ESTERASE 1+ (NEGATIVE); URINE NITRITE NEGATIVE (NEGATIVE); URINE PROTEIN 1+ (NEGATIVE); URINE UROBILINOGEN 0.2 mg/dL (0.2-1.0); URINE WBC 126 /uL (0-25.8); WHITE BLOOD COUNT 10.4 K/mm3 (4.0-10.0)
[2022-03-10 12:05] LABS: INR 1.34 (0.83-1.09); PROTHROMBIN TIME (PATIENT) 15.5 SEC (9.7-13.0)
[2022-03-10 12:07] LABS: ACTIVATED PTT 29.3 SECONDS (25.2-36.5)
[2022-03-10 12:30] LABS: BLOOD UREA NITROGEN 44.4 mg/dL (7-18)
[2022-03-10 12:31] LABS: CALCIUM 8.6 mg/dL (8.5-10.1)
[2022-03-10 12:33] LABS: ALBUMIN 1.6 g/dl (3.4-5.0)
[2022-03-10 12:34] LABS: BILIRUBIN,TOTAL 0.3 mg/dL (0.2-1); CREATININE 0.9 mg/dL (0.55-1.3)
[2022-03-10 12:36] LABS: URINE BACTERIA 48 /uL (0-1359); URINE CRYSTALS URIC ACID /hpf; URINE RBC 88 /uL (0-23.9); YEAST NEGATIVE (NEGATIVE)
[2022-03-10 12:37] LABS: TOT PROT 5.8 g/dl (6.4-8.2)
[2022-03-10 13:11] LABS: URIC ACID 5.9 mg/dL (2.6-7.2)
[2022-03-10] MEDS ORDERED: DEXTROSE 5%-LACTATED RINGERS 1,000 ML IV ONE (13:15)
[2022-03-10] MEDS ORDERED: PIPERACILLIN/TAZOB 3.375 GM 3.375 GM in DEXTROSE 5%-WATER - 50 ML IVPB ONE (14:49)
[2022-03-10] MEDS ORDERED: VANCOMYCIN 1 GM in D5W (PRE-DOCKED) 1,000 MG/250 ML IVPB ONE (14:50)
[2022-03-10] MEDS ORDERED: PIPERACILLIN/TAZOB 3.375 GM 3.375 GM/50 ML BAG IVPB ONE (15:35)
[2022-03-10] MEDS ORDERED: VANCOMYCIN/WATER FOR INJ (PEG) 1,000 MG/200 ML BAG IVPB ONE (15:35)
[2022-03-10] MEDS: DONEPEZIL HCL 10 MG TABLET (FP) PO SCH (17:46)
[2022-03-10] MEDS: D5-1/2NS+10 MEQ KCL - 10 MEQ/1,000 ML INFUS.BAG IV SCH (17:53)
[2022-03-10] MEDS: ATORVASTATIN CA 20 MG TABLET (FP) PO SCH (23:09)
[2022-03-11] MEDS: LEVOTHYROXINE NA 25 MCG TABLET (FP) PO SCH (06:11)
[2022-03-11] MEDS: D5-1/2NS+10 MEQ KCL - 10 MEQ/1,000 ML INFUS.BAG IV SCH ×2 (06:18→21:39)
[2022-03-11] MEDS: ENOXAPARIN NA (PORCINE) 40 MG/0.4 ML DISP.SYRIN SQ SCH (09:13)
[2022-03-11] MEDS: PANTOPRAZOLE 40 MG TABLET PO SCH (09:50)
[2022-03-11] MEDS: ASPIRIN 81 MG CHEWABLE TABLETS PO SCH (09:50)
[2022-03-11] MEDS ORDERED: CEFTRIAXONE 1 GM in DEXTROSE 5%-WATER - 50 ML IVPB SCH (10:00)
[2022-03-11] MEDS: metoPROLOL SUCCINATE 25 MG TAB.SR.24H (FP) PO SCH (10:04)
[2022-03-11 10:10] LABS: BASO % 1.1 % (0-2.0); EOS % 2.1 % (0-4.5); HEMOGLOBIN 7.9 GM/dL (11.7-16.9); LYMPH % 32.6 % (8-40); MCH 25.1 pg (25.7-33.7); MCHC 30.3 g/dl (32.0-35.9); MEAN CELL VOLUME 82.8 fl (80-96); MEAN PLT VOLUME 8.6 fl (7.5-11.1); MONO % 7.9 % (3.8-10.2); NEUT % 56.3 % (42.8-82.8); PLATELET COUNT 448 10^3/uL (134-434); RBC 3.15 M/mm3 (4.00-5.60); RDW 17.8 % (11.9-15.9); WHITE BLOOD COUNT 6.7 K/mm3 (4.0-10.0)
[2022-03-11 10:48] LABS: ALBUMIN 1.4 g/dl (3.4-5.0); CALCIUM 7.8 mg/dL (8.5-10.1)
[2022-03-11 10:49] LABS: BLOOD UREA NITROGEN 28.7 mg/dL (7-18); MAGNESIUM 2.3 mg/dL (1.8-2.4)
[2022-03-11 10:52] LABS: CREATININE 0.8 mg/dL (0.55-1.3)
[2022-03-11 10:53] LABS: BILIRUBIN,TOTAL 0.3 mg/dL (0.2-1); TOT PROT 4.8 g/dl (6.4-8.2)
[2022-03-11] MEDS: VANCOMYCIN/WATER FOR INJ (PEG) 1,000 MG/200 ML BAG IVPB SCH (12:55)
[2022-03-11 16:16] VITALS: BMI 16.2
[2022-03-11] MEDS: PIPERACILLIN/TAZOB 3.375 GM 3.375 GM in DEXTROSE 5%-WATER - 50 ML IVPB SCH (18:09)
[2022-03-11] MEDS: DONEPEZIL HCL 10 MG TABLET (FP) PO SCH (18:09)
[2022-03-11] MEDS: ASCORBIC ACID 250 MG TABLET (FP) PO SCH (21:39)
[2022-03-11] MEDS: ATORVASTATIN CA 20 MG TABLET (FP) PO SCH (21:39)
[2022-03-12] MEDS: PIPERACILLIN/TAZOB 3.375 GM 3.375 GM in DEXTROSE 5%-WATER - 50 ML IVPB SCH ×3 (01:15→18:04)
[2022-03-12] MEDS: LEVOTHYROXINE NA 25 MCG TABLET (FP) PO SCH (06:10)
[2022-03-12] MEDS: ASCORBIC ACID 250 MG TABLET (FP) PO SCH ×2 (10:27→21:23)
[2022-03-12] MEDS: PANTOPRAZOLE 40 MG TABLET PO SCH (10:27)
[2022-03-12] MEDS: ENOXAPARIN NA (PORCINE) 40 MG/0.4 ML DISP.SYRIN SQ SCH (10:27)
[2022-03-12] MEDS: ASPIRIN 81 MG CHEWABLE TABLETS PO SCH (10:27)
[2022-03-12] MEDS: MULTIVIT-MINERALS ORAL LIQUID PO SCH (10:27)
[2022-03-12] MEDS: D5-1/2NS+10 MEQ KCL - 10 MEQ/1,000 ML INFUS.BAG IV SCH ×2 (10:35→20:55)
[2022-03-12] MEDS: metoPROLOL SUCCINATE 25 MG TAB.SR.24H (FP) PO SCH (10:55)
[2022-03-12] MEDS: VANCOMYCIN/WATER FOR INJ (PEG) 1,000 MG/200 ML BAG IVPB SCH (11:58)
[2022-03-12] MEDS: DONEPEZIL HCL 10 MG TABLET (FP) PO SCH (18:04)
[2022-03-12] MEDS: ATORVASTATIN CA 20 MG TABLET (FP) PO SCH (21:23)
[2022-03-13] MEDS: PIPERACILLIN/TAZOB 3.375 GM 3.375 GM in DEXTROSE 5%-WATER - 50 ML IVPB SCH ×3 (01:22→17:16)
[2022-03-13] MEDS: ACETAMINOPHEN 325 MG TABLET (FP) PO PRN ×2 (03:01→14:32)
[2022-03-13] MEDS: D5-1/2NS+10 MEQ KCL - 10 MEQ/1,000 ML INFUS.BAG IV SCH ×2 (05:35→12:35)
[2022-03-13] MEDS: LEVOTHYROXINE NA 25 MCG TABLET (FP) PO SCH (06:22)
[2022-03-13] MEDS: COLLAGENASE CLOSTRIDIUM HIST. 30 GRAMS TUBE TP SCH (10:35)
[2022-03-13] MEDS: PANTOPRAZOLE 40 MG TABLET PO SCH (10:35)
[2022-03-13] MEDS: MULTIVIT-MINERALS ORAL LIQUID PO SCH (10:35)
[2022-03-13] MEDS: ASCORBIC ACID 250 MG TABLET (FP) PO SCH ×2 (10:35→21:17)
[2022-03-13] MEDS: metoPROLOL SUCCINATE 25 MG TAB.SR.24H (FP) PO SCH (10:35)
[2022-03-13] MEDS: ASPIRIN 81 MG CHEWABLE TABLETS PO SCH (10:35)
[2022-03-13] MEDS: SODIUM HYPOCHLORITE 0.25%- 473 ML BULK BOTTLE TP SCH (10:36)
[2022-03-13] MEDS: ENOXAPARIN NA (PORCINE) 40 MG/0.4 ML DISP.SYRIN SQ SCH (10:36)
[2022-03-13 10:43] LABS: HEMATOCRIT 23.4 % (35.4-49); HEMOGLOBIN 7.3 GM/dL (11.7-16.9); LYMPH % 34.8 % (8-40); MCH 26.1 pg (25.7-33.7); MCHC 31.2 g/dl (32.0-35.9); MEAN CELL VOLUME 83.6 fl (80-96); MEAN PLT VOLUME 8.5 fl (7.5-11.1); MONO % 6.2 % (3.8-10.2); PLATELET COUNT 358 10^3/uL (134-434); RBC 2.79 M/mm3 (4.00-5.60); RDW 16.9 % (11.9-15.9); WHITE BLOOD COUNT 6.1 K/mm3 (4.0-10.0)
[2022-03-13 11:15] LABS: CHLORIDE 109 mmol/L (98-107); SODIUM 135 mmol/L (136-145)
[2022-03-13 11:24] LABS: ANION GAP 5 MMOL/L (8-16); BLOOD UREA NITROGEN 10.8 mg/dL (7-18); CO2 20 mmol/L (21-32)
[2022-03-13 11:26] LABS: SGPT/ALT 12 U/L (13-61)
[2022-03-13 11:27] LABS: SGOT/AST 13 U/L (15-37)
[2022-03-13 11:28] LABS: BILIRUBIN,TOTAL 0.2 mg/dL (0.2-1); TOT PROT 3.5 g/dl (6.4-8.2)
[2022-03-13 11:29] LABS: ALK PHOS 58 U/L (45-117)
[2022-03-13 11:45] LABS: GLUCOSE,RANDOM 1002 mg/dL (74-106)
[2022-03-13] MEDS: VANCOMYCIN/WATER FOR INJ (PEG) 1,000 MG/200 ML BAG IVPB SCH (12:36)
[2022-03-13] MEDS: DONEPEZIL HCL 10 MG TABLET (FP) PO SCH (17:17)
[2022-03-13 17:53] LABS: EOS % 1.2 % (0-4.5); LYMPH % 30.4 % (8-40); MCH 25.5 pg (25.7-33.7); MEAN CELL VOLUME 82.1 fl (80-96); MEAN PLT VOLUME 8.9 fl (7.5-11.1); MONO % 6.1 % (3.8-10.2); NEUT % 61.3 % (42.8-82.8); PLATELET COUNT 401 10^3/uL (134-434); RBC 3.16 M/mm3 (4.00-5.60); RDW 17.2 % (11.9-15.9); RETICULOCYTES 0.65 % (0.5-1.5); WHITE BLOOD COUNT 7.6 K/mm3 (4.0-10.0)
[2022-03-13 18:19] LABS: BLOOD UREA NITROGEN 14.3 mg/dL (7-18)
[2022-03-13 18:22] LABS: CREATININE 0.8 mg/dL (0.55-1.3)
[2022-03-13 18:23] LABS: BILIRUBIN,TOTAL 0.3 mg/dL (0.2-1); TOT PROT 4.9 g/dl (6.4-8.2)
[2022-03-13 18:40] LABS: ALBUMIN 1.4 g/dl (3.4-5.0); CALCIUM 7.9 mg/dL (8.5-10.1)
[2022-03-13] MEDS: ERTAPENEM SODIUM 1 GM in SODIUM CHLORIDE 50 ML IVPB SCH (18:42)
[2022-03-13] MEDS: ATORVASTATIN CA 20 MG TABLET (FP) PO SCH (21:16)
[2022-03-13] MEDS: [UNRECOGNIZED DRUG - OTHER] IVPB SCH (21:19)
[2022-03-13] MEDS: AMINO ACIDS IVPB SCH (21:19)
[2022-03-13] MEDS: THIAMINE HCL IVPB SCH (21:19)
[2022-03-14] MEDS ORDERED: ACETAMINOPHEN 1000 MG/100 ML BAG IVPB ONE (02:08)
[2022-03-14] MEDS: LEVOTHYROXINE NA 25 MCG TABLET (FP) PO SCH ×2 (05:59→07:27)
[2022-03-14] MEDS: metoPROLOL SUCCINATE 25 MG TAB.SR.24H (FP) PO SCH (10:06)
[2022-03-14] MEDS: ENOXAPARIN NA (PORCINE) 40 MG/0.4 ML DISP.SYRIN SQ SCH (10:06)
[2022-03-14] MEDS: ASPIRIN 81 MG CHEWABLE TABLETS PO SCH (10:06)
[2022-03-14] MEDS: ASCORBIC ACID 250 MG TABLET (FP) PO SCH ×2 (10:07→22:18)
[2022-03-14] MEDS: PANTOPRAZOLE 40 MG TABLET PO SCH (10:07)
[2022-03-14] MEDS: SODIUM HYPOCHLORITE 0.25%- 473 ML BULK BOTTLE TP SCH (10:07)
[2022-03-14] MEDS: COLLAGENASE CLOSTRIDIUM HIST. 30 GRAMS TUBE TP SCH (10:07)
[2022-03-14] MEDS: ERTAPENEM SODIUM 1 GM in SODIUM CHLORIDE 50 ML IVPB SCH (10:07)
[2022-03-14] MEDS: MULTIVIT-MINERALS ORAL LIQUID PO SCH (10:08)
[2022-03-14 11:05] LABS: EOS % 1.7 % (0-4.5); HEMATOCRIT 23.9 % (35.4-49); HEMOGLOBIN 7.6 GM/dL (11.7-16.9); LYMPH % 39.4 % (8-40); MCHC 32.1 g/dl (32.0-35.9); MEAN CELL VOLUME 81.1 fl (80-96); MEAN PLT VOLUME 8.5 fl (7.5-11.1); MONO % 7.2 % (3.8-10.2); NEUT % 50.7 % (42.8-82.8); PLATELET COUNT 336 10^3/uL (134-434); RBC 2.94 M/mm3 (4.00-5.60); RDW 16.7 % (11.9-15.9); WHITE BLOOD COUNT 6.7 K/mm3 (4.0-10.0)
[2022-03-14 11:20] LABS: ALBUMIN 1.4 g/dl (3.4-5.0); BLOOD UREA NITROGEN 15.6 mg/dL (7-18); CALCIUM 7.7 mg/dL (8.5-10.1)
[2022-03-14 11:23] LABS: CREATININE 0.7 mg/dL (0.55-1.3)
[2022-03-14 11:25] LABS: BILIRUBIN,TOTAL 0.2 mg/dL (0.2-1); TOT PROT 4.7 g/dl (6.4-8.2)
[2022-03-14] MEDS: VANCOMYCIN/WATER FOR INJ (PEG) 1,000 MG/200 ML BAG IVPB SCH (13:03)
[2022-03-14] MEDS ORDERED: IRON SUCROSE INJECTION 200 MG in SODIUM CHLORIDE 90 ML IVPB ONE (16:45)
[2022-03-14] MEDS: DONEPEZIL HCL 10 MG TABLET (FP) PO SCH (17:56)
[2022-03-14] MEDS: [UNRECOGNIZED DRUG - OTHER] IVPB SCH (18:34)
[2022-03-14] MEDS: AMINO ACIDS IVPB SCH (18:34)
[2022-03-14] MEDS: THIAMINE HCL IVPB SCH (18:34)
[2022-03-14] MEDS: ATORVASTATIN CA 20 MG TABLET (FP) PO SCH (22:18)
[2022-03-15] MEDS: [UNRECOGNIZED DRUG - OTHER] IVPB SCH ×2 (05:51→17:48)
[2022-03-15] MEDS: THIAMINE HCL IVPB SCH ×2 (05:51→17:48)
[2022-03-15] MEDS: AMINO ACIDS IVPB SCH ×2 (05:51→17:48)
[2022-03-15] MEDS: LEVOTHYROXINE NA 25 MCG TABLET (FP) PO SCH (06:03)
[2022-03-15] MEDS: ASCORBIC ACID 250 MG TABLET (FP) PO SCH ×2 (09:39→22:22)
[2022-03-15] MEDS: metoPROLOL SUCCINATE 25 MG TAB.SR.24H (FP) PO SCH (09:39)
[2022-03-15] MEDS: ERTAPENEM SODIUM 1 GM in SODIUM CHLORIDE 50 ML IVPB SCH (09:39)
[2022-03-15] MEDS: MULTIVIT-MINERALS ORAL LIQUID PO SCH (09:39)
[2022-03-15] MEDS: ENOXAPARIN NA (PORCINE) 40 MG/0.4 ML DISP.SYRIN SQ SCH (09:39)
[2022-03-15] MEDS: PANTOPRAZOLE 40 MG TABLET PO SCH (09:39)
[2022-03-15] MEDS: ASPIRIN 81 MG CHEWABLE TABLETS PO SCH (09:39)
[2022-03-15] MEDS: COLLAGENASE CLOSTRIDIUM HIST. 30 GRAMS TUBE TP SCH (09:40)
[2022-03-15] MEDS: SODIUM HYPOCHLORITE 0.25%- 473 ML BULK BOTTLE TP SCH (09:40)
[2022-03-15] MEDS: VANCOMYCIN/WATER FOR INJ (PEG) 1,000 MG/200 ML BAG IVPB SCH (12:32)
[2022-03-15] MEDS ORDERED: POTASSIUM CHLORIDE ORAL LIQUID 20 MEQ/15 ML PO ONE (12:56)
[2022-03-15] MEDS: DONEPEZIL HCL 10 MG TABLET (FP) PO SCH ×2 (18:11→18:43)
[2022-03-15] MEDS: ATORVASTATIN CA 20 MG TABLET (FP) PO SCH (22:22)
[2022-03-16] MEDS: AMINO ACIDS IVPB SCH ×2 (00:49→22:00)
[2022-03-16] MEDS: THIAMINE HCL IVPB SCH ×2 (00:49→22:00)
[2022-03-16] MEDS: [UNRECOGNIZED DRUG - OTHER] IVPB SCH ×2 (00:49→22:00)
[2022-03-16] MEDS: LEVOTHYROXINE NA 25 MCG TABLET (FP) PO SCH (06:12)
[2022-03-16] MEDS: SODIUM HYPOCHLORITE 0.25%- 473 ML BULK BOTTLE TP SCH (10:30)
[2022-03-16] MEDS: COLLAGENASE CLOSTRIDIUM HIST. 30 GRAMS TUBE TP SCH (10:30)
[2022-03-16] MEDS: ASCORBIC ACID 250 MG TABLET (FP) PO SCH ×2 (11:04→22:32)
[2022-03-16] MEDS: metoPROLOL SUCCINATE 25 MG TAB.SR.24H (FP) PO SCH (11:04)
[2022-03-16] MEDS: ERTAPENEM SODIUM 1 GM in SODIUM CHLORIDE 50 ML IVPB SCH (11:05)
[2022-03-16] MEDS: ASPIRIN 81 MG CHEWABLE TABLETS PO SCH (11:05)
[2022-03-16] MEDS: PANTOPRAZOLE 40 MG TABLET PO SCH (11:05)
[2022-03-16] MEDS: ENOXAPARIN NA (PORCINE) 40 MG/0.4 ML DISP.SYRIN SQ SCH (11:05)
[2022-03-16] MEDS: MULTIVIT-MINERALS ORAL LIQUID PO SCH (11:05)
[2022-03-16] MEDS: VANCOMYCIN/WATER FOR INJ (PEG) 1,000 MG/200 ML BAG IVPB SCH (11:44)
[2022-03-16] MEDS: DONEPEZIL HCL 10 MG TABLET (FP) PO SCH (21:00)
[2022-03-16] MEDS: ATORVASTATIN CA 20 MG TABLET (FP) PO SCH (22:32)
[2022-03-17] MEDS: LEVOTHYROXINE NA 25 MCG TABLET (FP) PO SCH (06:19)
[2022-03-17] MEDS: SODIUM HYPOCHLORITE 0.25%- 473 ML BULK BOTTLE TP SCH (10:54)
[2022-03-17] MEDS: MULTIVIT-MINERALS ORAL LIQUID PO SCH (10:54)
[2022-03-17] MEDS: ASCORBIC ACID 250 MG TABLET (FP) PO SCH ×2 (10:55→23:04)
[2022-03-17] MEDS: metoPROLOL SUCCINATE 25 MG TAB.SR.24H (FP) PO SCH (10:55)
[2022-03-17] MEDS: ENOXAPARIN NA (PORCINE) 40 MG/0.4 ML DISP.SYRIN SQ SCH (10:55)
[2022-03-17] MEDS: COLLAGENASE CLOSTRIDIUM HIST. 30 GRAMS TUBE TP SCH (10:55)
[2022-03-17] MEDS: PANTOPRAZOLE 40 MG TABLET PO SCH (10:55)
[2022-03-17] MEDS: ASPIRIN 81 MG CHEWABLE TABLETS PO SCH (10:56)
[2022-03-17] MEDS: ERTAPENEM SODIUM 1 GM in SODIUM CHLORIDE 50 ML IVPB SCH (12:11)
[2022-03-17 14:04] LABS: ALBUMIN 1.4 g/dl (3.4-5.0); BLOOD UREA NITROGEN 12.7 mg/dL (7-18); MAGNESIUM 1.9 mg/dL (1.8-2.4)
[2022-03-17 14:07] LABS: CREATININE 0.4 mg/dL (0.55-1.3); PHOSPHOROUS 1.9 mg/dL (2.5-4.9)
[2022-03-17 14:08] LABS: BILIRUBIN,TOTAL 0.2 mg/dL (0.2-1); TOT PROT 4.7 g/dl (6.4-8.2)
[2022-03-17] MEDS: VANCOMYCIN/WATER FOR INJ (PEG) 1,000 MG/200 ML BAG IVPB SCH (14:11)
[2022-03-17] MEDS ORDERED: POTASSIUM PHOSPHATE 30 MM in SODIUM CHLORIDE 500 ML IVPB ONE (17:30)
[2022-03-17] MEDS: DONEPEZIL HCL 10 MG TABLET (FP) PO SCH (17:49)
[2022-03-17] MEDS: [UNRECOGNIZED DRUG - OTHER] IVPB SCH (23:04)
[2022-03-17] MEDS: POTASSIUM CHLORIDE IVPB SCH (23:04)
[2022-03-17] MEDS: ATORVASTATIN CA 20 MG TABLET (FP) PO SCH (23:04)
[2022-03-17] MEDS: THIAMINE HCL IVPB SCH (23:04)
[2022-03-17] MEDS: AMINO ACIDS IVPB SCH (23:04)
[2022-03-18] MEDS: POTASSIUM CHLORIDE IVPB SCH (04:13)
[2022-03-18] MEDS: THIAMINE HCL IVPB SCH (04:13)
[2022-03-18] MEDS: AMINO ACIDS IVPB SCH (04:13)
[2022-03-18] MEDS: [UNRECOGNIZED DRUG - OTHER] IVPB SCH (04:13)
[2022-03-18] MEDS: LEVOTHYROXINE NA 25 MCG TABLET (FP) PO SCH (07:26)
[2022-03-18] MEDS: PANTOPRAZOLE 40 MG TABLET PO SCH (10:34)
[2022-03-18] MEDS: ASCORBIC ACID 250 MG TABLET (FP) PO SCH ×2 (10:34→21:39)
[2022-03-18] MEDS: ASPIRIN 81 MG CHEWABLE TABLETS PO SCH (10:34)
[2022-03-18] MEDS: metoPROLOL SUCCINATE 25 MG TAB.SR.24H (FP) PO SCH (10:34)
[2022-03-18] MEDS: SODIUM HYPOCHLORITE 0.25%- 473 ML BULK BOTTLE TP SCH (10:35)
[2022-03-18] MEDS: ERTAPENEM SODIUM 1 GM in SODIUM CHLORIDE 50 ML IVPB SCH (10:35)
[2022-03-18] MEDS: MULTIVIT-MINERALS ORAL LIQUID PO SCH (10:35)
[2022-03-18] MEDS: COLLAGENASE CLOSTRIDIUM HIST. 30 GRAMS TUBE TP SCH (10:35)
[2022-03-18] MEDS: DONEPEZIL HCL 10 MG TABLET (FP) PO SCH (18:18)
[2022-03-18] MEDS: ATORVASTATIN CA 20 MG TABLET (FP) PO SCH (21:39)
[2022-03-19] MEDS: AMINO ACIDS IVPB SCH ×2 (04:17→17:13)
[2022-03-19] MEDS: [UNRECOGNIZED DRUG - OTHER] IVPB SCH ×2 (04:17→17:13)
[2022-03-19] MEDS: POTASSIUM CHLORIDE IVPB SCH ×2 (04:17→17:13)
[2022-03-19] MEDS: THIAMINE HCL IVPB SCH ×2 (04:17→17:13)
[2022-03-19] MEDS: LEVOTHYROXINE NA 25 MCG TABLET (FP) PO SCH (06:20)
[2022-03-19] MEDS: metoPROLOL SUCCINATE 25 MG TAB.SR.24H (FP) PO SCH ×2 (10:14→10:37)
[2022-03-19] MEDS: ASPIRIN 81 MG CHEWABLE TABLETS PO SCH ×2 (10:15→10:36)
[2022-03-19] MEDS: PANTOPRAZOLE 40 MG TABLET PO SCH ×2 (10:15→10:37)
[2022-03-19] MEDS: ASCORBIC ACID 250 MG TABLET (FP) PO SCH ×3 (10:15→22:27)
[2022-03-19] MEDS: MULTIVIT-MINERALS ORAL LIQUID PO SCH ×2 (10:18→10:35)
[2022-03-19] MEDS: ERTAPENEM SODIUM 1 GM in SODIUM CHLORIDE 50 ML IVPB SCH (10:19)
[2022-03-19 10:30] LABS: CALCIUM 7.9 mg/dL (8.5-10.1)
[2022-03-19 10:31] LABS: ALBUMIN 1.3 g/dl (3.4-5.0); BLOOD UREA NITROGEN 14.9 mg/dL (7-18); MAGNESIUM 1.7 mg/dL (1.8-2.4)
[2022-03-19 10:33] LABS: CREATININE 0.4 mg/dL (0.55-1.3); PHOSPHOROUS 2.3 mg/dL (2.5-4.9)
[2022-03-19 10:35] LABS: BILIRUBIN,TOTAL 0.3 mg/dL (0.2-1); TOT PROT 4.4 g/dl (6.4-8.2)
[2022-03-19] MEDS ORDERED: POTASSIUM PHOSPHATE 30 MM in DEXTROSE 5%-WATER - 500 ML IVPB ONE (12:48)
[2022-03-19] MEDS ORDERED: MAGNESIUM SULF 50% (8.12 MEQ/2 ML-1 GM VIAL) IVPB ONE (12:48)
[2022-03-19] MEDS: COLLAGENASE CLOSTRIDIUM HIST. 30 GRAMS TUBE TP SCH (15:28)
[2022-03-19] MEDS: SODIUM HYPOCHLORITE 0.25%- 473 ML BULK BOTTLE TP SCH (15:28)
[2022-03-19] MEDS: DONEPEZIL HCL 10 MG TABLET (FP) PO SCH (17:14)
[2022-03-19] MEDS: ATORVASTATIN CA 20 MG TABLET (FP) PO SCH (22:27)
[2022-03-20] MEDS: LEVOTHYROXINE NA 25 MCG TABLET (FP) PO SCH (06:51)
[2022-03-20] MEDS: ASCORBIC ACID 250 MG TABLET (FP) PO SCH ×2 (10:47→21:31)
[2022-03-20] MEDS: ASPIRIN 81 MG CHEWABLE TABLETS PO SCH (10:47)
[2022-03-20] MEDS: ZINC SULFATE 220 MG CAPSULE (FP) PO SCH (10:47)
[2022-03-20] MEDS: PANTOPRAZOLE 40 MG TABLET PO SCH (10:47)
[2022-03-20] MEDS: metoPROLOL SUCCINATE 25 MG TAB.SR.24H (FP) PO SCH (10:47)
[2022-03-20] MEDS: ERTAPENEM SODIUM 1 GM in SODIUM CHLORIDE 50 ML IVPB SCH (10:48)
[2022-03-20] MEDS: SODIUM HYPOCHLORITE 0.25%- 473 ML BULK BOTTLE TP SCH (10:48)
[2022-03-20] MEDS: MULTIVIT-MINERALS ORAL LIQUID PO SCH (10:48)
[2022-03-20] MEDS: COLLAGENASE CLOSTRIDIUM HIST. 30 GRAMS TUBE TP SCH (10:48)
[2022-03-20 11:18] LABS: BASO % 1.1 % (0-2.0); EOS % 2.9 % (0-4.5); HEMATOCRIT 22.1 % (35.4-49); HEMOGLOBIN 7.2 GM/dL (11.7-16.9); LYMPH % 40.4 % (8-40); MCH 25.9 pg (25.7-33.7); MCHC 32.6 g/dl (32.0-35.9); MEAN CELL VOLUME 79.5 fl (80-96); MEAN PLT VOLUME 8.3 fl (7.5-11.1); MONO % 10.5 % (3.8-10.2); NEUT % 45.1 % (42.8-82.8); PLATELET COUNT 341 10^3/uL (134-434); RBC 2.78 M/mm3 (4.00-5.60); WHITE BLOOD COUNT 5.6 K/mm3 (4.0-10.0)
[2022-03-20 11:54] LABS: CALCIUM 7.8 mg/dL (8.5-10.1)
[2022-03-20 11:55] LABS: ALBUMIN 1.4 g/dl (3.4-5.0); BLOOD UREA NITROGEN 14.1 mg/dL (7-18); MAGNESIUM 2.2 mg/dL (1.8-2.4)
[2022-03-20 11:57] LABS: CREATININE 0.4 mg/dL (0.55-1.3)
[2022-03-20 11:58] LABS: PHOSPHOROUS 2.6 mg/dL (2.5-4.9)
[2022-03-20 11:59] LABS: BILIRUBIN,TOTAL 0.2 mg/dL (0.2-1); TOT PROT 4.5 g/dl (6.4-8.2)
[2022-03-20] MEDS ORDERED: IRON SUCROSE INJECTION 200 MG in SODIUM CHLORIDE 90 ML IVPB ONE (18:28)
[2022-03-20] MEDS: THIAMINE HCL IVPB SCH (18:40)
[2022-03-20] MEDS: POTASSIUM CHLORIDE IVPB SCH (18:40)
[2022-03-20] MEDS: AMINO ACIDS IVPB SCH (18:40)
[2022-03-20] MEDS: [UNRECOGNIZED DRUG - OTHER] IVPB SCH (18:40)
[2022-03-20] MEDS: DONEPEZIL HCL 10 MG TABLET (FP) PO SCH (18:41)
[2022-03-20] MEDS: ATORVASTATIN CA 20 MG TABLET (FP) PO SCH (21:31)
[2022-03-21] MEDS: LEVOTHYROXINE NA 25 MCG TABLET (FP) PO SCH (06:25)
[2022-03-21] MEDS: ZINC SULFATE 220 MG CAPSULE (FP) PO SCH (10:48)
[2022-03-21] MEDS: SODIUM HYPOCHLORITE 0.25%- 473 ML BULK BOTTLE TP SCH (10:48)
[2022-03-21] MEDS: ERTAPENEM SODIUM 1 GM in SODIUM CHLORIDE 50 ML IVPB SCH (10:48)
[2022-03-21] MEDS: ASCORBIC ACID 250 MG TABLET (FP) PO SCH ×2 (10:48→21:53)
[2022-03-21] MEDS: PANTOPRAZOLE 40 MG TABLET PO SCH (10:48)
[2022-03-21] MEDS: metoPROLOL SUCCINATE 25 MG TAB.SR.24H (FP) PO SCH (10:48)
[2022-03-21] MEDS: ASPIRIN 81 MG CHEWABLE TABLETS PO SCH (10:48)
[2022-03-21] MEDS: MULTIVIT-MINERALS ORAL LIQUID PO SCH (10:48)
[2022-03-21] MEDS: COLLAGENASE CLOSTRIDIUM HIST. 30 GRAMS TUBE TP SCH (10:49)
[2022-03-21] MEDS: DONEPEZIL HCL 10 MG TABLET (FP) PO SCH (17:20)
[2022-03-21] MEDS: POTASSIUM CHLORIDE IVPB SCH (17:20)
[2022-03-21] MEDS: [UNRECOGNIZED DRUG - OTHER] IVPB SCH (17:20)
[2022-03-21] MEDS: AMINO ACIDS IVPB SCH (17:20)
[2022-03-21] MEDS: THIAMINE HCL IVPB SCH (17:20)
[2022-03-21] MEDS: ATORVASTATIN CA 20 MG TABLET (FP) PO SCH (21:53)
[2022-03-22] MEDS: THIAMINE HCL IVPB SCH ×2 (06:39→16:48)
[2022-03-22] MEDS: LEVOTHYROXINE NA 25 MCG TABLET (FP) PO SCH (06:39)
[2022-03-22] MEDS: POTASSIUM CHLORIDE IVPB SCH ×2 (06:39→16:48)
[2022-03-22] MEDS: AMINO ACIDS IVPB SCH ×2 (06:39→16:48)
[2022-03-22] MEDS: [UNRECOGNIZED DRUG - OTHER] IVPB SCH ×2 (06:39→16:48)
[2022-03-22] MEDS: ASCORBIC ACID 250 MG TABLET (FP) PO SCH ×2 (10:04→22:22)
[2022-03-22] MEDS: ASPIRIN 81 MG CHEWABLE TABLETS PO SCH (10:04)
[2022-03-22] MEDS: PANTOPRAZOLE 40 MG TABLET PO SCH (10:04)
[2022-03-22] MEDS: metoPROLOL SUCCINATE 25 MG TAB.SR.24H (FP) PO SCH (10:04)
[2022-03-22] MEDS: ZINC SULFATE 220 MG CAPSULE (FP) PO SCH (10:04)
[2022-03-22] MEDS: MULTIVIT-MINERALS ORAL LIQUID PO SCH (10:05)
[2022-03-22] MEDS: SODIUM HYPOCHLORITE 0.25%- 473 ML BULK BOTTLE TP SCH (10:05)
[2022-03-22] MEDS: ERTAPENEM SODIUM 1 GM in SODIUM CHLORIDE 50 ML IVPB SCH (10:05)
[2022-03-22] MEDS: COLLAGENASE CLOSTRIDIUM HIST. 30 GRAMS TUBE TP SCH (10:06)
[2022-03-22 10:33] LABS: HEMATOCRIT 22.7 % (35.4-49); HEMOGLOBIN 7.4 GM/dL (11.7-16.9); MCH 25.9 pg (25.7-33.7); MCHC 32.4 g/dl (32.0-35.9); MEAN CELL VOLUME 79.7 fl (80-96); MEAN PLT VOLUME 8.5 fl (7.5-11.1); PLATELET COUNT 373 10^3/uL (134-434); RBC 2.85 M/mm3 (4.00-5.60); RDW 17.6 % (11.9-15.9); WHITE BLOOD COUNT 5.7 K/mm3 (4.0-10.0)
[2022-03-22 11:06] LABS: ALBUMIN 1.5 g/dl (3.4-5.0); BLOOD UREA NITROGEN 13.9 mg/dL (7-18); CALCIUM 7.9 mg/dL (8.5-10.1)
[2022-03-22 11:09] LABS: CREATININE 0.4 mg/dL (0.55-1.3); PHOSPHOROUS 2.7 mg/dL (2.5-4.9)
[2022-03-22 11:10] LABS: BILIRUBIN,TOTAL 0.2 mg/dL (0.2-1); TOT PROT 4.9 g/dl (6.4-8.2)
[2022-03-22] MEDS: DONEPEZIL HCL 10 MG TABLET (FP) PO SCH (17:44)
[2022-03-22] MEDS: ATORVASTATIN CA 20 MG TABLET (FP) PO SCH (22:21)
[2022-03-23] MEDS: THIAMINE HCL IVPB SCH (06:12)
[2022-03-23] MEDS: POTASSIUM CHLORIDE IVPB SCH (06:12)
[2022-03-23] MEDS: LEVOTHYROXINE NA 25 MCG TABLET (FP) PO SCH (06:12)
[2022-03-23] MEDS: [UNRECOGNIZED DRUG - OTHER] IVPB SCH (06:12)
[2022-03-23] MEDS: AMINO ACIDS IVPB SCH (06:12)
[2022-03-23 08:58] VITALS: RESP 18
[2022-03-23] MEDS: ASCORBIC ACID 250 MG TABLET (FP) PO SCH (10:21)
[2022-03-23] MEDS: PANTOPRAZOLE 40 MG TABLET PO SCH (10:21)
[2022-03-23] MEDS: ZINC SULFATE 220 MG CAPSULE (FP) PO SCH (10:21)
[2022-03-23] MEDS: ASPIRIN 81 MG CHEWABLE TABLETS PO SCH (10:21)
[2022-03-23] MEDS: metoPROLOL SUCCINATE 25 MG TAB.SR.24H (FP) PO SCH (10:22)
[2022-03-23] MEDS: MULTIVIT-MINERALS ORAL LIQUID PO SCH (10:22)
[2022-03-23] MEDS: ERTAPENEM SODIUM 1 GM in SODIUM CHLORIDE 50 ML IVPB SCH (10:22)
[2022-03-23] MEDS: SODIUM HYPOCHLORITE 0.25%- 473 ML BULK BOTTLE TP SCH (10:23)
[2022-03-23] MEDS: COLLAGENASE CLOSTRIDIUM HIST. 30 GRAMS TUBE TP SCH (10:24)
[2022-03-23 14:28] VITALS: BP 102/59; PULSE 115; TEMP 97.9
== END 2022-03-23 16:00 | DRG 689 ==
LOC: JER 10:47 → JERBED 14:57 → J5S 21:33 → J6S 03-16 18:34
PROVIDERS: ADMIT Family Medicine; ATTEND Family Medicine
DX: N39.0 Urinary tract infection, site not specified (principal); E43 Unspecified severe protein-calorie malnutrition; G92.8 Other toxic encephalopathy; L89.894 Pressure ulcer of other site, stage 4; E87.0 Hyperosmolality and hypernatremia; Z68.1 Body mass index [BMI] 19.9 or less, adult; R64 Cachexia; F02.80 Dementia in other diseases classified elsewhere, unspecified severity, without behavioral disturbance, psychotic disturbance, mood disturbance, and anxiety; I10 Essential (primary) hypertension; E78.5 Hyperlipidemia, unspecified; I25.10 Atherosclerotic heart disease of native coronary artery without angina pectoris; E03.9 Hypothyroidism, unspecified; F03.90 Unspecified dementia, unspecified severity, without behavioral disturbance, psychotic disturbance, mood disturbance, and anxiety; K21.9 Gastro-esophageal reflux disease without esophagitis; E86.0 Dehydration; Z95.5 Presence of coronary angioplasty implant and graft
CPT/HCPCS: 0241U-QW; 36415; 70450-TC; 71045-TC-FY; 80053; 81003; 82607; 82728; 82746; 82803; 82962; 83540; 83550; 83605; 83735; 84100; 84443; 84466; 84484; 84550; 85025; 85027; 85045; 85610; 85651; 85730; 86140; 86780; 86850; 86900; 86901; 87040; 87070; 87086; 87186; 87205; 93005; 93010; 99285-25; C9803-CS; G0480; J1756; U0003; U0005

== ENCOUNTER 2022-04-05 17:11 | Inpatient (IN) | payer OTHER, MEDICARE ==
[2022-04-05] MEDS ORDERED: ACETAMINOPHEN 1000 MG/100 ML BAG IVPB ONE (18:26)
[2022-04-05] MEDS ORDERED: LACTATED RINGERS SOLUTION 1000 ML INFUS.BAG IV ONE (18:27)
[2022-04-05 19:44] LABS: BASO % 0.8 % (0-2.0); EOS % 1.8 % (0-4.5); HEMATOCRIT 25.8 % (35.4-49); HEMOGLOBIN 8.5 GM/dL (11.7-16.9); LYMPH % 34.5 % (8-40); MCH 26.9 pg (25.7-33.7); MCHC 32.8 g/dl (32.0-35.9); MEAN PLT VOLUME 8.3 fl (7.5-11.1); MONO % 8.7 % (3.8-10.2); NEUT % 54.2 % (42.8-82.8); PLATELET COUNT 398 10^3/uL (134-434); RBC 3.15 M/mm3 (4.00-5.60); RDW 18.9 % (11.9-15.9); WHITE BLOOD COUNT 8.4 K/mm3 (4.0-10.0)
[2022-04-05] MEDS ORDERED: ACETAMINOPHEN INJECTION 100 ML IVPB ONE (19:45)
[2022-04-05 19:50] LABS: INR 1.32 (0.83-1.09); PROTHROMBIN TIME (PATIENT) 15.3 SEC (9.7-13.0)
[2022-04-05 20:07] LABS: ALBUMIN 1.7 g/dl (3.4-5.0); BLOOD UREA NITROGEN 15.5 mg/dL (7-18); CALCIUM 8.2 mg/dL (8.5-10.1); MAGNESIUM 1.9 mg/dL (1.8-2.4)
[2022-04-05 20:10] LABS: CREATININE 0.5 mg/dL (0.55-1.3); PHOSPHOROUS 2.3 mg/dL (2.5-4.9)
[2022-04-05 20:12] LABS: BILIRUBIN,TOTAL 0.3 mg/dL (0.2-1); TOT PROT 5.1 g/dl (6.4-8.2)
[2022-04-05 22:14] LABS: EPI CELLS 23 /uL (0-25.1); HYALINE CASTS 29 /uL (0-3.1); URINE APPEARANCE TURBID; URINE BACTERIA 2 /uL (0-1359); URINE BILIRUBIN NEGATIVE (NEGATIVE); URINE COLOR DK YELLOW; URINE GLUCOSE (UA) NEGATIVE (NEGATIVE); URINE KETONE TRACE (NEGATIVE); URINE LEUK ESTERASE NEGATIVE (NEGATIVE); URINE NITRITE NEGATIVE (NEGATIVE); URINE PROTEIN 1+ (NEGATIVE); URINE RBC 35 /uL (0-23.9); URINE UROBILINOGEN 0.2 mg/dL (0.2-1.0)
[2022-04-05] MEDS ORDERED: DEXTROSE 5%-NORMAL SALINE 1,000 ML IV SCH (22:30)
[2022-04-06] MEDS ORDERED: ACETAMINOPHEN 325 MG TABLET (FP) PO PRN (06:03)
[2022-04-06] MEDS: LEVOTHYROXINE NA 25 MCG TABLET (FP) PO SCH (07:10)
[2022-04-06 08:20] LABS: BASO % 0.9 % (0-2.0); EOS % 2.5 % (0-4.5); LYMPH % 31.1 % (8-40); MCH 26.6 pg (25.7-33.7); MEAN CELL VOLUME 83.3 fl (80-96); MEAN PLT VOLUME 8.8 fl (7.5-11.1); NEUT % 57.5 % (42.8-82.8); PLATELET COUNT 341 10^3/uL (134-434); RDW 19.4 % (11.9-15.9); WHITE BLOOD COUNT 7.4 K/mm3 (4.0-10.0)
[2022-04-06 08:37] LABS: BLOOD UREA NITROGEN 12.9 mg/dL (7-18); CALCIUM 8.1 mg/dL (8.5-10.1)
[2022-04-06 08:41] LABS: CREATININE 0.4 mg/dL (0.55-1.3)
[2022-04-06] MEDS: traMADol HCL 50 MG TABLET PO PRN ×2 (09:07→22:18)
[2022-04-06 09:18] LABS: URINE CRYSTALS PRESENT /hpf; URINE WBC 59 /uL (0-25.8)
[2022-04-06] MEDS: MEMANTINE HCL 10 MG TABLET (FP) PO SCH (10:49)
[2022-04-06] MEDS: ASCORBIC ACID 250 MG TABLET (FP) PO SCH ×2 (10:50→22:38)
[2022-04-06] MEDS: ZINC SULFATE 220 MG CAPSULE (FP) PO SCH (10:50)
[2022-04-06] MEDS: metoPROLOL SUCCINATE 25 MG TAB.SR.24H (FP) PO SCH (10:50)
[2022-04-06] MEDS: MULTIVITAMINS (DAILY MVI) TABLET (FP) PO SCH (10:50)
[2022-04-06] MEDS: PANTOPRAZOLE 40 MG TABLET PO SCH (10:50)
[2022-04-06] MEDS: ERTAPENEM SODIUM 1 GM in SODIUM CHLORIDE 50 ML IVPB SCH (12:34)
[2022-04-06] MEDS ORDERED: IRON SUCROSE INJECTION 200 MG in SODIUM CHLORIDE 90 ML IVPB ONE (15:24)
[2022-04-06] MEDS ORDERED: SODIUM PHOSPHATE - 20 MM in DEXTROSE 5%-WATER - 250 ML IVPB ONE ×2 (15:37→20:00)
[2022-04-06] MEDS ORDERED: DEXTROSE 5%-0.45% SALINE 995 ML with POTASSIUM CHLORIDE 10 MEQ IV SCH ×2 (15:45)
[2022-04-06] MEDS: D5-1/2NS+10 MEQ KCL - 10 MEQ/1,000 ML INFUS.BAG IV SCH (19:10)
[2022-04-06] MEDS: SENNOSIDES/DOCUSATE COMBO (SENNA PLUS) TABLET (UD) PO SCH (22:18)
[2022-04-06] MEDS: ATORVASTATIN CA 20 MG TABLET (FP) PO SCH (22:18)
[2022-04-06] MEDS: DONEPEZIL HCL 10 MG TABLET (FP) PO SCH (22:18)
[2022-04-07] MEDS: LEVOTHYROXINE NA 25 MCG TABLET (FP) PO SCH (05:41)
[2022-04-07 09:32] LABS: ALBUMIN 1.5 g/dl (3.4-5.0); BLOOD UREA NITROGEN 8.7 mg/dL (7-18); CALCIUM 7.7 mg/dL (8.5-10.1); MAGNESIUM 1.8 mg/dL (1.8-2.4)
[2022-04-07 09:35] LABS: CREATININE 0.5 mg/dL (0.55-1.3); PHOSPHOROUS 3.3 mg/dL (2.5-4.9)
[2022-04-07 09:36] LABS: BILIRUBIN,TOTAL 0.3 mg/dL (0.2-1); TOT PROT 4.7 g/dl (6.4-8.2)
[2022-04-07] MEDS: MEMANTINE HCL 10 MG TABLET (FP) PO SCH (10:14)
[2022-04-07] MEDS: ZINC SULFATE 220 MG CAPSULE (FP) PO SCH (10:15)
[2022-04-07] MEDS: metoPROLOL SUCCINATE 25 MG TAB.SR.24H (FP) PO SCH (10:15)
[2022-04-07] MEDS: PANTOPRAZOLE 40 MG TABLET PO SCH (10:15)
[2022-04-07] MEDS: MULTIVITAMINS (DAILY MVI) TABLET (FP) PO SCH (10:15)
[2022-04-07] MEDS: ASCORBIC ACID 250 MG TABLET (FP) PO SCH ×2 (10:15→21:38)
[2022-04-07] MEDS: ERTAPENEM SODIUM 1 GM in SODIUM CHLORIDE 50 ML IVPB SCH (10:43)
[2022-04-07] MEDS ORDERED: KCL 10 MEQ IVPB 10 MEQ/100 ML INFUS.BAG IVPB SCH (12:30)
[2022-04-07] MEDS: D5-1/2NS+10 MEQ KCL - 10 MEQ/1,000 ML INFUS.BAG IV SCH (12:34)
[2022-04-07] MEDS: KCL 10 MEQ IVPB 10 MEQ/100 ML INFUS.BAG IVPB SCH ×3 (14:14→17:42)
[2022-04-07] MEDS: POTASSIUM CHLORIDE 20 MEQ in DEXTROSE 5%-WATER - 1,000 ML IV SCH (15:30)
[2022-04-07] MEDS: ATORVASTATIN CA 20 MG TABLET (FP) PO SCH (21:35)
[2022-04-07] MEDS: DONEPEZIL HCL 10 MG TABLET (FP) PO SCH (21:35)
[2022-04-07] MEDS: SENNOSIDES/DOCUSATE COMBO (SENNA PLUS) TABLET (UD) PO SCH (21:36)
[2022-04-08] MEDS: POTASSIUM CHLORIDE 20 MEQ in DEXTROSE 5%-WATER - 1,000 ML IV SCH (04:00)
[2022-04-08] MEDS: LEVOTHYROXINE NA 25 MCG TABLET (FP) PO SCH (05:43)
[2022-04-08] MEDS: ERTAPENEM SODIUM 1 GM in SODIUM CHLORIDE 50 ML IVPB SCH (10:32)
[2022-04-08] MEDS: ZINC SULFATE 220 MG CAPSULE (FP) PO SCH (10:34)
[2022-04-08] MEDS: MEMANTINE HCL 10 MG TABLET (FP) PO SCH (10:34)
[2022-04-08] MEDS: PANTOPRAZOLE 40 MG TABLET PO SCH (10:35)
[2022-04-08] MEDS: ASCORBIC ACID 250 MG TABLET (FP) PO SCH ×2 (10:35→23:08)
[2022-04-08] MEDS: metoPROLOL SUCCINATE 25 MG TAB.SR.24H (FP) PO SCH (10:35)
[2022-04-08] MEDS: MULTIVITAMINS (DAILY MVI) TABLET (FP) PO SCH (10:35)
[2022-04-08 11:18] LABS: ALBUMIN 1.4 g/dl (3.4-5.0); CALCIUM 7.5 mg/dL (8.5-10.1); MAGNESIUM 1.6 mg/dL (1.8-2.4)
[2022-04-08 11:19] LABS: BLOOD UREA NITROGEN 6.5 mg/dL (7-18)
[2022-04-08 11:21] LABS: CREATININE 0.4 mg/dL (0.55-1.3); PHOSPHOROUS 1.9 mg/dL (2.5-4.9)
[2022-04-08 11:23] LABS: BILIRUBIN,TOTAL 0.5 mg/dL (0.2-1); TOT PROT 4.4 g/dl (6.4-8.2)
[2022-04-08 12:28] VITALS: BMI 15.9
[2022-04-08] MEDS ORDERED: MAGNESIUM SULF 50% (8.12 MEQ/2 ML-1 GM VIAL) IVPB ONE (14:57)
[2022-04-08] MEDS ORDERED: POTASSIUM PHOSPHATE 15 MM in DEXTROSE 5%-WATER - 250 ML IVPB ONE (17:00)
[2022-04-08] MEDS: POTASSIUM CHLORIDE 20 MEQ in AMINO ACIDS 4.25%/D5W 1,000 ML IV SCH (17:20)
[2022-04-08] MEDS: ATORVASTATIN CA 20 MG TABLET (FP) PO SCH (23:08)
[2022-04-08] MEDS: SENNOSIDES/DOCUSATE COMBO (SENNA PLUS) TABLET (UD) PO SCH (23:08)
[2022-04-08] MEDS: DONEPEZIL HCL 10 MG TABLET (FP) PO SCH (23:08)
[2022-04-09] MEDS: POTASSIUM CHLORIDE 20 MEQ in AMINO ACIDS 4.25%/D5W 1,000 ML IV SCH ×3 (06:05→22:53)
[2022-04-09] MEDS: LEVOTHYROXINE NA 25 MCG TABLET (FP) PO SCH (06:05)
[2022-04-09 08:08] LABS: CALCIUM 7.4 mg/dL (8.5-10.1)
[2022-04-09 08:09] LABS: BLOOD UREA NITROGEN 10.5 mg/dL (7-18)
[2022-04-09 08:12] LABS: CREATININE 0.4 mg/dL (0.55-1.3)
[2022-04-09 08:13] LABS: PHOSPHOROUS 1.9 mg/dL (2.5-4.9)
[2022-04-09] MEDS: ERTAPENEM SODIUM 1 GM in SODIUM CHLORIDE 50 ML IVPB SCH ×2 (09:25→09:42)
[2022-04-09] MEDS: metoPROLOL SUCCINATE 25 MG TAB.SR.24H (FP) PO SCH ×2 (09:34→09:41)
[2022-04-09] MEDS: MULTIVITAMINS (DAILY MVI) TABLET (FP) PO SCH ×2 (09:34→09:41)
[2022-04-09] MEDS: PANTOPRAZOLE 40 MG TABLET PO SCH (09:35)
[2022-04-09] MEDS: ZINC SULFATE 220 MG CAPSULE (FP) PO SCH ×2 (09:35→09:41)
[2022-04-09] MEDS: ASCORBIC ACID 250 MG TABLET (FP) PO SCH ×2 (09:35→21:50)
[2022-04-09] MEDS: MEMANTINE HCL 10 MG TABLET (FP) PO SCH ×2 (09:35→09:41)
[2022-04-09] MEDS ORDERED: ACETAMINOPHEN 1000 MG/100 ML BAG IVPB PRN ×2 (09:53→11:54)
[2022-04-09] MEDS ORDERED: SODIUM PHOSPHATE - 30 MM in DEXTROSE 5%-WATER - 250 ML IVPB ONE (12:30)
[2022-04-09] MEDS: SENNOSIDES/DOCUSATE COMBO (SENNA PLUS) TABLET (UD) PO SCH (21:50)
[2022-04-09] MEDS: ATORVASTATIN CA 20 MG TABLET (FP) PO SCH (21:50)
[2022-04-09] MEDS: DONEPEZIL HCL 10 MG TABLET (FP) PO SCH (21:50)
[2022-04-10] MEDS: POTASSIUM CHLORIDE 20 MEQ in AMINO ACIDS 4.25%/D5W 1,000 ML IV SCH (06:04)
[2022-04-10] MEDS: LEVOTHYROXINE NA 25 MCG TABLET (FP) PO SCH (06:04)
[2022-04-10 08:56] LABS: BASO % 0.8 % (0-2.0); EOS % 1.2 % (0-4.5); HEMATOCRIT 26.7 % (35.4-49); HEMOGLOBIN 8.7 GM/dL (11.7-16.9); LYMPH % 29.9 % (8-40); MCHC 32.7 g/dl (32.0-35.9); MEAN CELL VOLUME 82.5 fl (80-96); MEAN PLT VOLUME 9.1 fl (7.5-11.1); MONO % 4.8 % (3.8-10.2); NEUT % 63.3 % (42.8-82.8); PLATELET COUNT 362 10^3/uL (134-434); RBC 3.24 M/mm3 (4.00-5.60); RDW 19.2 % (11.9-15.9); WHITE BLOOD COUNT 9.1 K/mm3 (4.0-10.0)
[2022-04-10 09:11] LABS: ALBUMIN 1.5 g/dl (3.4-5.0); CALCIUM 7.6 mg/dL (8.5-10.1)
[2022-04-10 09:12] LABS: BLOOD UREA NITROGEN 19.4 mg/dL (7-18); MAGNESIUM 1.9 mg/dL (1.8-2.4)
[2022-04-10 09:14] LABS: PHOSPHOROUS 2.2 mg/dL (2.5-4.9)
[2022-04-10 09:15] LABS: CREATININE 0.4 mg/dL (0.55-1.3)
[2022-04-10 09:16] LABS: BILIRUBIN,TOTAL 0.5 mg/dL (0.2-1)
[2022-04-10] MEDS: PANTOPRAZOLE 40 MG TABLET PO SCH (09:58)
[2022-04-10] MEDS: MEMANTINE HCL 10 MG TABLET (FP) PO SCH (09:58)
[2022-04-10] MEDS: ZINC SULFATE 220 MG CAPSULE (FP) PO SCH (09:58)
[2022-04-10] MEDS: metoPROLOL SUCCINATE 25 MG TAB.SR.24H (FP) PO SCH (09:59)
[2022-04-10] MEDS: MULTIVITAMINS (DAILY MVI) TABLET (FP) PO SCH (09:59)
[2022-04-10] MEDS: ASCORBIC ACID 250 MG TABLET (FP) PO SCH ×2 (09:59→21:28)
[2022-04-10] MEDS: ERTAPENEM SODIUM 1 GM in SODIUM CHLORIDE 50 ML IVPB SCH (10:04)
[2022-04-10] MEDS ORDERED: SODIUM PHOSPHATE - 20 MM in SODIUM CHLORIDE 500 ML IVPB ONE (14:00)
[2022-04-10] MEDS: SENNOSIDES/DOCUSATE COMBO (SENNA PLUS) TABLET (UD) PO SCH (21:27)
[2022-04-10] MEDS: DONEPEZIL HCL 10 MG TABLET (FP) PO SCH (21:27)
[2022-04-10] MEDS: ATORVASTATIN CA 20 MG TABLET (FP) PO SCH (21:27)
[2022-04-11] MEDS: LEVOTHYROXINE NA 25 MCG TABLET (FP) PO SCH (06:06)
[2022-04-11 09:15] LABS: ALBUMIN 1.4 g/dl (3.4-5.0); BLOOD UREA NITROGEN 17.9 mg/dL (7-18); CALCIUM 7.4 mg/dL (8.5-10.1); MAGNESIUM 1.8 mg/dL (1.8-2.4)
[2022-04-11 09:16] LABS: CREATININE 0.4 mg/dL (0.55-1.3)
[2022-04-11 09:18] LABS: BILIRUBIN,TOTAL 0.5 mg/dL (0.2-1); PHOSPHOROUS 2.2 mg/dL (2.5-4.9); TOT PROT 4.6 g/dl (6.4-8.2)
[2022-04-11] MEDS: MULTIVITAMINS (DAILY MVI) TABLET (FP) PO SCH (10:59)
[2022-04-11] MEDS: metoPROLOL SUCCINATE 25 MG TAB.SR.24H (FP) PO SCH (10:59)
[2022-04-11] MEDS: ASCORBIC ACID 250 MG TABLET (FP) PO SCH ×2 (10:59→22:17)
[2022-04-11] MEDS: ZINC SULFATE 220 MG CAPSULE (FP) PO SCH (11:00)
[2022-04-11] MEDS: PANTOPRAZOLE 40 MG TABLET PO SCH (11:00)
[2022-04-11] MEDS: ERTAPENEM SODIUM 1 GM in SODIUM CHLORIDE 50 ML IVPB SCH (12:01)
[2022-04-11] MEDS: POTASSIUM CHLORIDE 20 MEQ in AMINO ACIDS 4.25%/D5W 1,000 ML IV SCH ×2 (12:01→21:31)
[2022-04-11] MEDS: SENNOSIDES/DOCUSATE COMBO (SENNA PLUS) TABLET (UD) PO SCH (22:17)
[2022-04-12] MEDS: LEVOTHYROXINE NA 25 MCG TABLET (FP) PO SCH (06:11)
[2022-04-12] MEDS: POTASSIUM CHLORIDE 20 MEQ in AMINO ACIDS 4.25%/D5W 1,000 ML IV SCH ×3 (06:11→19:06)
[2022-04-12] MEDS: PANTOPRAZOLE 40 MG TABLET PO SCH (09:48)
[2022-04-12] MEDS: metoPROLOL SUCCINATE 25 MG TAB.SR.24H (FP) PO SCH (09:49)
[2022-04-12] MEDS: ZINC SULFATE 220 MG CAPSULE (FP) PO SCH (09:49)
[2022-04-12] MEDS: MULTIVITAMINS (DAILY MVI) TABLET (FP) PO SCH (09:49)
[2022-04-12] MEDS: ERTAPENEM SODIUM 1 GM in SODIUM CHLORIDE 50 ML IVPB SCH (09:49)
[2022-04-12] MEDS: ASCORBIC ACID 250 MG TABLET (FP) PO SCH ×2 (09:49→22:14)
[2022-04-12] MEDS: SENNOSIDES/DOCUSATE COMBO (SENNA PLUS) TABLET (UD) PO SCH (22:14)
[2022-04-13] MEDS: POTASSIUM CHLORIDE 20 MEQ in AMINO ACIDS 4.25%/D5W 1,000 ML IV SCH ×3 (06:07→17:33)
[2022-04-13] MEDS: LEVOTHYROXINE NA 25 MCG TABLET (FP) PO SCH (06:08)
[2022-04-13] MEDS: PANTOPRAZOLE 40 MG TABLET PO SCH (09:20)
[2022-04-13] MEDS: ZINC SULFATE 220 MG CAPSULE (FP) PO SCH (09:20)
[2022-04-13] MEDS: metoPROLOL SUCCINATE 25 MG TAB.SR.24H (FP) PO SCH (09:21)
[2022-04-13] MEDS: ASCORBIC ACID 250 MG TABLET (FP) PO SCH (09:21)
[2022-04-13] MEDS: MULTIVITAMINS (DAILY MVI) TABLET (FP) PO SCH (09:21)
[2022-04-13] MEDS ORDERED: AMINO ACID 8 % IN D14W 1,000 ML IV.SOLN IVPB SCH (11:00)
[2022-04-14] MEDS: SENNOSIDES/DOCUSATE COMBO (SENNA PLUS) TABLET (UD) PO SCH (01:06)
[2022-04-14] MEDS: ASCORBIC ACID 250 MG TABLET (FP) PO SCH ×2 (01:07→09:59)
[2022-04-14] MEDS: POTASSIUM CHLORIDE 20 MEQ in AMINO ACIDS 4.25%/D5W 1,000 ML IV SCH ×2 (05:00→07:45)
[2022-04-14] MEDS: LEVOTHYROXINE NA 25 MCG TABLET (FP) PO SCH (07:50)
[2022-04-14 08:07] VITALS: RESP 16
[2022-04-14] MEDS: PANTOPRAZOLE 40 MG TABLET PO SCH (09:58)
[2022-04-14] MEDS: ZINC SULFATE 220 MG CAPSULE (FP) PO SCH (09:58)
[2022-04-14] MEDS: metoPROLOL SUCCINATE 25 MG TAB.SR.24H (FP) PO SCH (09:59)
[2022-04-14] MEDS: MULTIVITAMINS (DAILY MVI) TABLET (FP) PO SCH (09:59)
[2022-04-14 13:17] VITALS: BP 115/55; PULSE 91; TEMP 98.1
== END 2022-04-14 13:42 | disposition hospice, inpatient (51) | DRG 640 ==
LOC: JER 17:11 → INTOOBSV 19:40 → JERBED 19:40 → J6S 04-06 02:09 → OBSVTOIN 04-06 14:26
PROVIDERS: ADMIT Internal Medicine; ATTEND Family Medicine
DX: R62.7 Adult failure to thrive (principal); E43 Unspecified severe protein-calorie malnutrition; L89.893 Pressure ulcer of other site, stage 3; R53.2 Functional quadriplegia; R64 Cachexia; Z68.1 Body mass index [BMI] 19.9 or less, adult; E87.0 Hyperosmolality and hypernatremia; I10 Essential (primary) hypertension; F03.90 Unspecified dementia, unspecified severity, without behavioral disturbance, psychotic disturbance, mood disturbance, and anxiety; E78.5 Hyperlipidemia, unspecified; I25.10 Atherosclerotic heart disease of native coronary artery without angina pectoris; R13.10 Dysphagia, unspecified; E86.0 Dehydration; D64.9 Anemia, unspecified; E87.6 Hypokalemia; E03.9 Hypothyroidism, unspecified; R91.1 Solitary pulmonary nodule; E83.42 Hypomagnesemia; E83.39 Other disorders of phosphorus metabolism; L89.150 Pressure ulcer of sacral region, unstageable; L89.896 Pressure-induced deep tissue damage of other site; L89.126 Pressure-induced deep tissue damage of left upper back; L89.516 Pressure-induced deep tissue damage of right ankle; L89.132 Pressure ulcer of right lower back, stage 2; L89.322 Pressure ulcer of left buttock, stage 2
CPT/HCPCS: 0241U-QW; 36415; 71045-TC-FY; 80048; 80053; 81003; 83540; 83550; 83735; 84100; 85025; 85610; 85730; 86850; 86900; 86901; 87086; 93005; 93010; 99285-25; C9803-CS; G0378; J1756; U0003; U0005